=== PATIENT | male | born 1955 | race African-American/Black ===

== ENCOUNTER → 2020-05-12 14:04 | Outpatient (BNVA) | payer OTHER, MEDICAID, SELFPAY | PROVIDERS: Visit Provider Urology ==

== ENCOUNTER → 2022-06-20 11:16 | Outpatient (BNVA) | payer MEDICARE, OTHER, MEDICAID, SELFPAY | PROVIDERS: Visit Provider Nurse Practitioner Family | DX: N40.1 Benign prostatic hyperplasia with lower urinary tract symptoms (principal); N13.8 Other obstructive and reflux uropathy; C64.9 Malignant neoplasm of unspecified kidney, except renal pelvis | CPT/HCPCS: 51798; 99212 ==

== ENCOUNTER 2022-06-21 12:20 | Outpatient (REF) | payer MEDICARE, OTHER, MEDICAID, SELFPAY ==
[2022-06-21 13:49] LABS: PSA,Total (Free>4and<10) 4.74 ng/mL (0.00-4.00)
[2022-06-22 10:09] LABS: Free Prostate Spec Ag 1.4 ng/mL; Percent Free Prostate Spec Ag 28 % (calc) (>25)
== END 2022-06-21 12:21 | disposition home or self-care (01) ==
LOC: HO.LAB 12:20
PROVIDERS: PCP Internal Medicine; Visit Provider Nurse Practitioner Family
DX: Z12.5 Encounter for screening for malignant neoplasm of prostate (principal); N40.1 Benign prostatic hyperplasia with lower urinary tract symptoms; N13.8 Other obstructive and reflux uropathy
CPT/HCPCS: 36415; 84153; 84154

== ENCOUNTER 2022-07-11 15:43 | Outpatient (REF) | payer MEDICARE, OTHER, MEDICAID, SELFPAY ==
--- NOTE | ~2022-07-11 | US_ITS ---
EXAMINATION: US RETROPERITONEAL COMPLETE (RENAL) CLINICAL INFORMATION: Malignant neoplasm of unspecified kidney, except renal pelvis. COMPARISON: Renal ultrasound 04/23/2020 and 09/10/2019. TECHNIQUE: Real-time imaging of the kidneys and bladder. FINDINGS: RIGHT KIDNEY: 8.5 x 5.6 x 5.4 cm (SAG x AP x TRV). The kidney is normal in size, contour, and echogenicity. Cortical scarring lateral mid pole. No renal calculi or hydronephrosis. Midpole cyst measures 1.3 x 1.1 x 1.4 cm. LEFT KIDNEY: 8.8 x 6.3 x 5.3 cm (SAG x AP x TRV). The kidney is normal in size, contour, and echogenicity. Renal cortical thickness is normal. No focal parenchymal lesions or hydronephrosis. 2 mm cortically based calcification. BLADDER: Well distended. Bilateral ureteral jets are demonstrated. Prevoid bladder volume is 277 mL. Postvoid bladder volume is 7.7 mL. ADDITIONAL FINDINGS: Prostate gland measures 4.2 x 5.3 x 3.8 cm for a volume of 44.4 mL. US/US retroperitoneal comp IMPRESSION: Cortical scarring lateral mid pole right kidney. Right renal cyst. No suspicious features.
== END 2022-07-11 15:44 | disposition home or self-care (01) ==
LOC: HO.US 15:43
PROVIDERS: PCP Internal Medicine; Visit Provider Nurse Practitioner Family
DX: C64.9 Malignant neoplasm of unspecified kidney, except renal pelvis (principal); N40.1 Benign prostatic hyperplasia with lower urinary tract symptoms; N13.8 Other obstructive and reflux uropathy
CPT/HCPCS: 76770

== ENCOUNTER → 2022-08-04 14:22 | Outpatient (BNVA) | payer MEDICARE, OTHER, MEDICAID, SELFPAY | PROVIDERS: Visit Provider Nurse Practitioner Family | DX: C64.9 Malignant neoplasm of unspecified kidney, except renal pelvis (principal); R97.20 Elevated prostate specific antigen [PSA]; R39.9 Unspecified symptoms and signs involving the genitourinary system | CPT/HCPCS: 51798; 99212 ==

== ENCOUNTER 2022-09-13 14:38 | Outpatient (AMB) | payer MEDICARE, OTHER, MEDICAID, SELFPAY ==
--- NOTE | 2022-09-13 14:56 | HO.VETSHOME ---
Intake Intake Visit Reasons: 6w/PVR Allergies spariva Allergy (Unknown, Uncoded 08/04/22 22:19) Unknown [facility] Medical History Anxiety Benign prostatic hyperplasia with lower urinary tract symptoms Bipolar disorder Chronic obstructive pulmonary disease (COPD) Depression Feeling of incomplete bladder emptying History of suicidal tendencies Memory loss Renal cancer Rheumatoid arthritis Urinary urgency Surgical History H/O endoscopy History of appendectomy History of hernia repair Family History Father No problems noted. Mother No problems noted. Coding Diagnoses
--- NOTE | 2022-09-13 14:57 | A.OFFVIS_ITS ---
Intake Intake Visit Reasons: 6w/PVR Intake Note: Patient is present for follow up renal cancer/BPH Urology Medications: d/c tamsulosin, finasteride, terazosin Blood Thinner: none Pt unable to void PVR: 16ml Fabric Awning Repairer Required: No Accompanied by: Self / Same As Patient Allergies spariva Allergy (Unknown, Uncoded 08/04/22 22:19) Unknown HPI HPI Comments History of Present Illness Details Dung is a very pleasant 67 year old male patient of Dr. Velez. He presents to the office today for follow-up. He has a past medical history of COPD, BPH, anxiety, H pylori, anemia, chronic back pain, obstructive sleep apnea, hyperlipidemia, former smoker, GERD, rheumatoid arthritis, osteoarthritis, bipolar disorder, and past history of cocaine abuse. Of note, patient was previously seen approximately 6 weeks ago at which time his Flomax was discontinued and the patient was started on terazosin for ongoing lower urinary tract symptoms. In discussion with the patient today he reports to be doing and feeling well. He reports to be happy with his current voiding parameters on 5 mg of terazosin daily. He otherwise offers no issues or concerns at this time. When asked he denies hematuria, dysuria, foul smelling urine, changes to urinary stream, flank pain, fever, and or chills. Unable to obtain urine for urinalysis as patient unable to void however PVR 16mls. PSA 06/28--5.0 Percent free 28%. Patient reports compliance with 5 mg of finasteride daily will reassess PSA in December. PREVIOUS VISIT WITH ------ Elevated PSA/Abnormal JERROD:? Discussed imaging findings ? Right exophytic cyst cyst stable ? Continues on medications for prostate ? He presents for?further evaluation of elevated PSA. ? Current management is medication with 5AR. ? Laboratory investigations include 04/24 6.6 ? 10/25 5.1 F 21% ? 04/25 4.2 04/26 4.3 Individualized Prostate Cancer Risk Calculator 5-10% high risk, Discussed use of 5AR to help differentiate prostate cancer from benign disease. He would like to try this and understands the small risk associated with a delay in diagnosis, Discussion regarding TRUS biopsy performed. ? Therapeutic plan will be Continue finasteride and obtain PSA in 4 months ? Discussed Biopsy may be warranted. Renal lesion:? They present for? reevaluation of renal mass characterized as, right side, renal cancer. ? The renal mass was diagnosed incidentally, during evaluation for, back pain. ? Imaging included 06/16 - a CT (computed tomography) scan of the abdomen/pelvis, showing a solid mass, 2-3.0 cm in size, on the right ? - Followup imaging has showed appropriate scarring ? 04/22 , an MRI of the abdomen, ablation scar on the right ? 03/27 , a renal ultrasound, table ablation area on right ? 09/25 , a renal ultrasound, right 1.2 cm exophytic cyst consistent with ablation area - 05/27 BAMBI ? Prior treatment(s) included 06/16 cryotherapy [facility]. ? Staging of initial cancer T1a. ? The diagnosis was renal cell carcinoma, Grade II. ? Current symptoms include? hematuria? No ? dysuria? No ? fever? No ? chills? No ? Follow up imaging includes renal Ultrasound. [facility] Medical History Anxiety Benign prostatic hyperplasia with lower urinary tract symptoms Bipolar disorder Chronic obstructive pulmonary disease (COPD) Depression Feeling of incomplete bladder emptying History of suicidal tendencies Memory loss Renal cancer Rheumatoid arthritis Urinary urgency Surgical History H/O endoscopy History of appendectomy History of hernia repair Family History Father No problems noted. Mother No problems noted. Social History Unable to assess alcohol history related to: Unable to respond Patient Tobacco Use Status: Never used Tobacco Review of Systems Const Reports as per [facility] Eyes Reports no additional complaints ENT Reports no additional complaints Card Reports no additional complaints Resp Reports as per HPI GI Reports as per HPI Reports as per HPI Neuro Reports no additional complaints Psych Reports as per HPI Endo Reports no additional complaints Physical Exam Const General: cooperative, comfortable, no acute distress, well developed, alert and awake Nutritional Appearance: thin Orientation/consciousness: patient oriented x3 Limitations: ambulation with cane HEENT Head: Yes normal to inspection, Yes normocephalic and Yes atraumatic Ears: hearing grossly normal bilaterally Eyes General: appearance normal, both eyes and all related structures Neck Neck: Yes normal visual inspection and Yes trachea midline Chest Chest palpation & inspection: normal inspection of the chest Resp Effort & Inspection: normal respiratory effort and able to speak in complete sentences Cardio Rate: regular rate GI Inspection: Yes normal to inspection General: Yes no CVA tenderness Back/Spine/Pelvis Back: no CVA tenderness Skin General skin exam: no rashes or lesions noted Neuro General: patient oriented x3 Extrem General: Yes normal to inspection Psych Appearance: grossly normal and well kempt Mental Status: mental status grossly normal Speech and movement: Normal speech and movement present and Clear speech present Affect: normal affect Attitude: cooperative Thought process: Normal thought process present Thought content: Normal thought content present Insight: Fair insight present (Psych) Judgement: Fair judgement present (Psych) Office Procedures Post Void Residual Post Residual Void Post Void Residual (PVR): 116 [id number] Void Residual by ultrasound Assessment & Plan Assessment & Plan (1) Elevated PSA: Code(s): R97.20 - Elevated prostate specific antigen [PSA] (2) Lower urinary tract symptoms: Code(s): R39.9 - Unspecified symptoms and signs involving the genitourinary system (3) BPH w urinary obs/LUTS: Code(s): N40.1 - Benign prostatic hyperplasia with lower urinary tract symptoms; N13.8 - Other obstructive and reflux uropathy (4) Renal cancer: Code(s): C64.9 - Malignant neoplasm of unspecified kidney, except renal pelvis Plan Unable to obtain urine for urinalysis however PVR 16 mL. Continue terazosin 5 mg as discussed and prescribed. Continue finasteride 5 mg as discussed and prescribed. Will obtain redraw of PSA in December. PSA in 3 months Will continue with surveillance imaging for history of renal cell carcinoma discussed obtaining more recent CT abd and pelvis Discussed and stressed the importance of drinking plenty of water daily. Patient otherwise denies any bothersome urinary issues or concerns at this time. Follow-up in 3 months with lab to be completed prior; or sooner with any issues, concerns, and or questions. Orders: Orders PSA,Total (Free>4and<10) 3 Months R97.20 - Elevated prostate specific antigen [PSA] AMB Post Void Residual by ultrasound 09/13/22 N39.8 - Other specified disorders of urinary system Patient Instructions: The patient had an opportunity to ask questions regarding the treatment plan. All questions were answered. Physical exam, labs, and imaging were discussed and reviewed in detail. As well as risks, benefits, and discussion of treatment c hoices. No major barriers to understanding were identified. The patient expressed understanding and agreement with the above treatment plan. The patient was made aware they should contact our office by phone for worsening of their current condition, the appearance of new symptoms, or with any questions or concerns. Compliance is encouraged with any medications and follow up testing that is ordered. It is a privilege to be allowed the opportunity to participate in? your urological care.? Again, if you have any questions or concerns If you have any questions or concerns please do not hesitate to contact me. The office is [phone]. This note is constructed using voice recognition software. While every effort has been made to ensure accuracy transmission repairer errors may have been included. Yours sincerely, MARKY Pichardo Coding Level of Care Code Est Pt Level 3 (98024) Diagnoses Elevated PSA R97.20 Lower urinary tract symptoms R39.9 BPH w urinary obs/LUTS N40.1; N13.8 Renal cancer C64.9 CPT Codes Post Residual Void - PVR CPT Code: 52962-Tqkq Void Residual by ultrasound ([id number])
== END 2022-09-13 15:25 | disposition home or self-care (01) ==
PROVIDERS: PCP Internal Medicine; Visit Provider Nurse Practitioner Family
DX: R97.20 Elevated prostate specific antigen [PSA] (principal); R39.9 Unspecified symptoms and signs involving the genitourinary system; N40.1 Benign prostatic hyperplasia with lower urinary tract symptoms; N13.8 Other obstructive and reflux uropathy; C64.9 Malignant neoplasm of unspecified kidney, except renal pelvis
CPT/HCPCS: 99213

== ENCOUNTER → 2022-09-13 14:38 | Outpatient (BNVA) | payer MEDICARE, OTHER, MEDICAID, SELFPAY | PROVIDERS: PCP Internal Medicine; Visit Provider Nurse Practitioner Family | DX: R97.20 Elevated prostate specific antigen [PSA] (principal); N40.1 Benign prostatic hyperplasia with lower urinary tract symptoms; R39.9 Unspecified symptoms and signs involving the genitourinary system; N13.8 Other obstructive and reflux uropathy; C64.9 Malignant neoplasm of unspecified kidney, except renal pelvis | CPT/HCPCS: 51798; 99212 ==

== ENCOUNTER 2022-11-04 11:43 | Outpatient (REF) | payer MEDICARE, OTHER, MEDICAID, SELFPAY ==
[2022-11-04 13:00] LABS: PSA,Total (Free>4and<10) 2.23 ng/mL (0.00-4.00)
== END 2022-11-04 11:44 | disposition home or self-care (01) ==
LOC: HO.LAB 11:43
PROVIDERS: PCP Internal Medicine; Visit Provider Nurse Practitioner Family
DX: Z12.5 Encounter for screening for malignant neoplasm of prostate (principal); R97.20 Elevated prostate specific antigen [PSA]
CPT/HCPCS: 36415; 84153

== ENCOUNTER 2022-11-08 14:27 | Outpatient (AMB) | payer MEDICARE, OTHER, MEDICAID, SELFPAY ==
--- NOTE | 2022-11-08 14:46 | A.OFFVIS_ITS ---
Intake Intake Visit Reasons: 2m/PSA Intake Note: Patient is present for follow up renal cancer/BPH/elevated psa (psa 2.23) Urology Medications: finasteride, terazosin Blood Thinner: none PVR: 14ml's Manager Packaging Required: No Accompanied by: Self / Same As Patient Allergies spariva Allergy (Unknown, Uncoded 11/08/22 23:11) Unknown Medication List - Last Reconciled 11/08/22 by Amy Nguyen, ASBESTOS ABATEMENT TECHNICIAN- albuterol sulfate 90 mcg/actuation inhalation budesonide-formoterol 160-4.5 mcg/actuation 2 puffs PO BID docusate sodium 100 mg PO DAILY ferrous sulfate (FeroSul) 325 mg PO DAILY finasteride 5 mg PO DAILY 90 days immun glob G(IgG)-gly-IgA ov50 10 % (Gammagard Liquid) mL IV levalbuterol tartrate 45 mcg/actuation 0 mcg inhalation montelukast 10 mg PO BEDTIME omeprazole 20 mg PO QAM pravastatin 40 mg PO DAILY prednisone 10 mg PO DAILY terazosin 5 mg PO BEDTIME 90 days theophylline ER 1 mg PO BEDTIME HPI HPI Comments History of Present Illness Details Dung is a very pleasant 67 year old male patient of Dr. Velez. He presents to the office today for follow-up. He has a past medical history of COPD, BPH, anxiety, H pylori, anemia, chronic back pain, obstructive sleep apnea, hyperlipidemia, former smoker, GERD, rheumatoid arthritis, osteoarthritis, bipolar disorder, and past history of cocaine abuse. Of note, patient was previously seen approximately 2 months ago at which time patient reported terazosin he was started on had significantly improved his lower urinary tract symptoms however PSA was ordered and not completed. Therefore, recommendations were made for follow-up of a PSA. These results were reviewed with the patient today. Patient's PSAs are as follows: 06/28--4.7 06/28--5.0 % free prostate specific antig en 28% 10/29--2.2 PCPT calculator results were reviewed with the patient 07/29-- 76% negative, 12% chance low-grade prostate cancer, and 12% chance of high-grade prostate cancer was discussed with the patient. Discussion regarding potential causes for elevated PSA was discussed. Discussed prostate biopsy verses surveillance mo nitoring versus continuation of finasteride at which time patient wished to proceed with continuation of finasteride 5 mg daily. In discussion with the patient today he reports to be happy with current voiding parameters on 5 mg of terazosin daily as well as compliance with 5 mg of finasteride daily. He denies any urinary issues or concerns at this time. In office urinalysis results reviewed with the patient today. PVR 14 mLs. Discussed obtaining redraw of PSA, renal ultrasound, and chest x-ray in 6 months for further assessment evaluation. PREVIOUS NOTES WITH ---- Renal lesion:? They present for? reevaluation of renal mass characterized as, right side, renal cancer. ? The renal mass was diagnosed incidentally, during evaluation for, back pain. ? Imaging included 06/16 - a CT (computed tomography) scan of the abdomen/pelvis, showing a solid mass, 2-3.0 cm in size, on the right ? - Followup imaging has showed appropriate scarring ? 04/22 , an MRI of the abdomen, ablation scar on the right ? 03/27 , a renal ultrasound, table ablation area on right ? 09/25 , a renal ultrasound, right 1.2 cm exophytic cyst consistent with ablation area - 05/27 BAMBI ? Prior treatment(s) included 06/16 cryotherapy [facility]. ? Staging of initial cancer T1a. ? The diagnosis was renal cell carcinoma, Grade II. ? Current symptoms include? hematuria? No ? dysuria? No ? fever? No ? chills? No ? Follow up imaging includes renal Ultrasound. [facility] Medical History Memory loss History of suicidal tendencies Anxiety Depression Bipolar disorder Rheumatoid arthritis Chronic obstructive pulmonary disease (COPD) Urinary urgency Benign prostatic hyperplasia with lower urinary tract symptoms Feeling of incomplete bladder emptying Renal cancer Surgical History H/O endoscopy History of hernia repair History of appendectomy Family History Father No problems noted. Mother No problems noted. Social History Unable to assess alcohol history related to: Unable to respond Patient Tobacco Use Status: Never used Tobacco Review of Systems Const Reports as per [facility] Eyes Reports no additional complaints ENT Reports no additional complaints Card Reports no additional complaints Resp Reports as per HPI GI Reports as per HPI Reports as per HPI Neuro Reports no additional complaints Psych Reports as per HPI Endo Reports no additional complaints Physical Exam Const General: cooperative, comfortable, no acute distress, well developed, alert and awake Nutritional Appearance: thin Orientation/consciousness: patient oriented x3 Limitations: ambulation with cane HEENT Head: Yes normal to inspection, Yes normocephalic and Yes atraumatic Ears: hearing grossly normal bilaterally Eyes General: appearance normal, both eyes and all related structures Neck Neck: Yes normal visual inspection and Yes trachea midline Chest Chest palpation & inspection: normal inspection of the chest Resp Effort & Inspection: normal respiratory effort and able to speak in complete sentences Cardio Rate: regular rate GI Inspection: Yes normal to inspection General: Yes no CVA tenderness Back/Spine/Pelvis Back: no CVA tenderness Skin General skin exam: no rashes or lesions noted Neuro General: patient oriented x3 Extrem General: Yes normal to inspection Psych Appearance: grossly normal and well kempt Mental Status: mental status grossly normal Speech and movement: Normal speech and movement present and Clear speech present Affect: normal affect Attitude: cooperative Thought process: Normal thought process present Thought content: Normal thought content present Insight: Fair insight present (Psych) Judgement: Fair judgement present (Psych) Office Procedures Post Void Residual Post Residual Void Post Void Residual (PVR): 14 [id number] Void Residual by ultrasound Results AMB Urinalysis, Automated UA Leukoctes 0 Dodie/uL Last Edit by Bee Resilientmartell on 11/08/22 15:01 UA Nitrite Negative Last Edit by Bee Resilientmartell on 11/08/22 15:01 UA Urobilinogen 0.2 mg/dL Last Edit by BoxCat on 11/08/22 15:01 UA Protein 0 mg/dL Last Edit by Bee Resilientmartell on 11/08/22 15:01 UA pH 6.5 Last Edit by BoxCat on 11/08/22 15:01 UA Blood 0 Lobito/uL Last Edit by Sabra Alvamartell on 11/08/22 15:01 UA Specific [place] 1.010 Last Edit by Sabra Alvamartell on 11/08/22 15:01 UA Ketone Negative Last Edit by Sabra Alvamartell on 11/08/22 15:01 UA Bilirubin 0 mg/dL Last Edit by Flipmargi Nidamartell on 11/08/22 15:01 UA Glucose 0 mg/dL Last Edit by Velasquezleigha Nidamartell on 11/08/22 15:01 Results Reviewed Results Reviewed: Laboratory Last Values Urine pH (Auto) 6.5 11/08/22 14:50 Specific [place] (Auto) 1.010 11/08/22 14:50 Urine Protein (Auto) 0 mg/dL 11/08/22 14:50 Glucose (UA)(Auto) 0 mg/dL 11/08/22 14:50 Urine Ketones (Auto) Negative 11/08/22 14:50 Urine Blood (Auto) 0 Lobito/uL 11/08/22 14:50 Urine Nitrite (Auto) Negative 11/08/22 14:50 Urine Bilirubin (Auto) 0 mg/dL 11/08/22 14:50 Urine Urobilinogen (Auto) 0.2 mg/dL 11/08/22 14:50 Leukocyte Esterase (Auto) 0 Dodie/uL 11/08/22 14:50 Assessment & Plan Assessment & Plan (1) Renal cancer: Code(s): C64.9 - Malignant neoplasm of unspecified kidney, except renal pelvis (2) Elevated PSA: Code(s): R97.20 - Elevated prostate specific antigen [PSA] (3) Lower urinary tract symptoms: Code(s): R39.9 - Unspecified symptoms and signs involving the genitourinary system Plan In office urinalysis results reviewed with the patient today; as noted above. PVR 14 mL. Recent PSA results reviewed with the patient today; as noted above. Continue to arises 5 mg daily as well as finasteride 5 mg daily as discussed and prescribed. Patient reports be happy with current voiding parameters on 5 mg of terazosin and finasteride daily; will continue; refills provided Discussed at length potential causes for elevated PSA. Will obtain PSA in 6 months. Will obtain chest x-ray in 6 months. Will obtain renal ultrasound in 6 months for further assessment evaluation. Follow-up in 6 months with labs and imaging to be completed prior; or sooner with any issues, concerns, and or questions. Orders: Orders AMB Urinalysis Automated Today Z13.9 - Encounter for screening, unspecified XR chest 2V 6 Months C64.9 - Malignant neoplasm of unspecified kidney, except renal pelvis AMB Post Void Residual by ultrasound Today N13.8 - Other obstructive and reflux uropathy, N40.1 - Benign prostatic hyperplasia with lower urinary tract symptoms Prostate Specific Antigen 6 Months R97.20 - Elevated prostate specific antigen [PSA] US renal BI 6 Months N20.0 - Calculus of kidney Medications: Changed From terazosin 5 mg PO BEDTIME 30 days 30 caps 2RF N40.1 - Benign prostatic hyperplasia with lower urinary tract symptoms, R35.0 - Frequency of micturition To terazosin 5 mg PO BEDTIME 90 days 90 caps 2RF N40.1 - Benign prostatic hyperplasia with lower urinary tract symptoms, R35.0 - Frequency of micturition Refilled finasteride 5 mg PO DAILY 90 days 90 tabs 3RF N13.8 - Other obstructive and reflux uropathy, N40.1 - Benign prostatic hyperplasia with lower urinary tract symptoms, R33.9 - Retention of urine, unspecified terazosin 5 mg PO BEDTIME 90 days 90 caps 2RF N40.1 - Benign prostatic hyperplasia with lower urinary tract symptoms, R35.0 - Frequency of micturition finasteride 5 mg PO DAILY 90 days 90 tabs 3RF N13.8 - Other obstructive and reflux uropathy, N40.1 - Benign prostatic hyperplasia with lower urinary tract symptoms, R33.9 - Retention of urine, unspecified Patient Instructions: The patient had an opportunity to ask questions regarding the treatment plan. All questions were answered. Physical exam, labs, and imaging were discussed and reviewed in detail. As well as risks, benefits, and discussion of treatment choices. No major barriers to understanding were identified. The patient expressed understanding and agreement with the above treatment plan. The patient was made aware they should contact our office by phone for worsening of their current condition, the appearance of new symptoms, or with any questions or concerns. Compliance is encouraged with any medications and follow up testing that is ordered. It is a privilege to be allowed the opportunity to participate in? your urological care.? Again, if you have any questions or concerns If you have any questions or concerns please do not hesitate to contact me. The office is [phone]. This note is constructed using voice recognition software. While every effort has been made to ensure accuracy air pollution specialist errors may have been included. Yours sincerely, ROGER Pichardo- Coding Level of Care Code Est Pt Level 3 (95420) Diagnoses Renal cancer C64.9 Elevated PSA R97.20 Lower urinary tract symptoms R39.9 CPT Codes Post Residual Void - PVR CPT Code: 49239-Vcad Void Residual by ultrasound ([id number])
== END 2022-11-08 15:31 | disposition home or self-care (01) ==
PROVIDERS: PCP Internal Medicine; Visit Provider Nurse Practitioner Family
DX: C64.9 Malignant neoplasm of unspecified kidney, except renal pelvis (principal); R97.20 Elevated prostate specific antigen [PSA]; R39.9 Unspecified symptoms and signs involving the genitourinary system
CPT/HCPCS: 99213

== ENCOUNTER → 2022-11-08 14:27 | Outpatient (BNVA) | payer MEDICARE, OTHER, MEDICAID, SELFPAY | PROVIDERS: PCP Internal Medicine; Visit Provider Nurse Practitioner Family | DX: C64.9 Malignant neoplasm of unspecified kidney, except renal pelvis (principal); R97.20 Elevated prostate specific antigen [PSA]; R39.9 Unspecified symptoms and signs involving the genitourinary system; N40.1 Benign prostatic hyperplasia with lower urinary tract symptoms; N13.8 Other obstructive and reflux uropathy; R35.0 Frequency of micturition | CPT/HCPCS: 51798; 81003; 99212 ==

== ENCOUNTER 2022-12-23 08:14 | Outpatient (AMB) | payer MEDICARE, OTHER, MEDICAID, SELFPAY ==
--- NOTE | 2022-12-23 08:46 | MHC.OFFVIS ---
Intake Intake Visit Reasons: Voiding trail Intake Note: Patient is Present for Follow Up Voiding Trial Urology Medication: Finasteride, Terazosin Antibiotic Allergies:None Blood Thinners: None PVR: Compliants: Patient stating that he is having a lot of penile pain. Upon looking at patient his penis is swollen. Allergies spariva Allergy (Unknown, Uncoded 12/23/22 08:47) Unknown Medication List - Last Reconciled 12/23/22 by Micky Lopez MD albuterol sulfate 90 mcg/actuation inhalation budesonide-formoterol 160-4.5 mcg/actuation 2 puffs PO BID docusate sodium 100 mg PO DAILY ferrous sulfate (FeroSul) 325 mg PO DAILY finasteride 5 mg PO DAILY 90 days immun glob G(IgG)-gly-IgA ov50 10 % (Gammagard Liquid) mL IV levalbuterol tartrate 45 mcg/actuation 0 mcg inhalation montelukast 10 mg PO BEDTIME omeprazole 20 mg PO QAM pravastatin 40 mg PO DAILY prednisone 10 mg PO DAILY terazosin 5 mg PO BEDTIME 90 days theophylline ER 1 mg PO BEDTIME HPI HPI Comments History of Present Illness Details Gabriele is a pleasant male. He is a patient of . He seen for the following urologic conditions - renal cancer - lower urinary tract symptoms - elevated PSA PSA fell on finasteride Episode of retention at [facility] Here for voiding trial Difficulty removing catheter Lower urinary tract symptoms Current therapy terazosin with significant improved Finasteride started for elevated PSA PSA 06/28--4.7, 06/28--5.0 % free prostate specific antigen 28%, 10/29--2.2 Renal Cancer - Ablation 06/16 :? They present for? reevaluation of renal mass characterized as, right side, renal cancer. ? The renal mass was diagnosed incidentally, during evaluation for, back pain. ? Imaging included 06/16 - a CT (computed tomography) scan of the abdomen/pelvis, showing a solid mass, 2-3.0 cm in size, on the right ? - Followup imaging has showed appropriate scarring ? 04/22 , an MRI of the abdomen, ablation scar on the right ? 03/27 , a renal ultrasound, table ablation area on right ? 09/25 , a renal ultrasound, right 1.2 cm exophytic cyst consistent with ablation area - 07/29 BAMBI 44 g prostate, renal cyst ? Prior treatment(s) included 06/16 cryotherapy [facility]. ? Staging of initial cancer T1a. ? The diagnosis was renal cell carcinoma, Grade II. ? Follow up imaging includes renal Ultrasound. [facility] Medical History Memory loss History of suicidal tendencies Anxiety Depression Bipolar disorder Rheumatoid arthritis Chronic obstructive pulmonary disease (COPD) Urinary urgency Benign prostatic hyperplasia with lower urinary tract symptoms Feeling of incomplete bladder emptying Renal cancer Surgical History H/O endoscopy History of hernia repair History of appendectomy Family History Father No problems noted. Mother No problems noted. Social History Unable to assess alcohol history related to: Unable to respond Patient Tobacco Use Status: Never used Tobacco Review of Systems Const Denies chills and Denies fever(s) Card Reports no additional complaints and Denies syncope Resp Denies cough GI Denies abdominal pain and Denies heartburn Reports as per HPI and Denies change in libido Neuro Denies syncope Psych Denies change in libido Endo Denies change in libido Physical Exam Const General: cooperative, healthy appearing, comfortable and no acute distress Orientation/consciousness: patient oriented x3 HEENT Face and sinus: Yes normal facial exam Mouth: moist mucous membranes Neck Neck: Yes normal visual inspection, Yes full ROM and Yes trachea midline Chest Chest palpation & inspection: normal inspection of the chest Resp Effort & Inspection: normal respiratory effort, able to speak in complete sentences and no respiratory distress GI Inspection: Yes normal to inspection Back/Spine/Pelvis Cervical Spine: normal cervical lordosis Thoracic/Lumbar Spine: thoracic and lumbar spine normal to inspection Skin General skin exam: no rashes or lesions noted Neuro General: patient oriented x3, gait normal, tone normal and moves all extremities Extrem General: Yes normal to inspection and Yes capillary refill normal Office Procedures Bladder/Catheter Procedure Details: 120 mls sterile water instilled into bladder, unable to remove cath, valve cut by Dr Freed, urine drained out, no PVR at this time. 2 week [place]. [id number] of Bladder Procedure code (CPT) selection complete Assessment & Plan Assessment & Plan (1) BPH w urinary obs/LUTS: Code(s): N40.1 - Benign prostatic hyperplasia with lower urinary tract symptoms; N13.8 - Other obstructive and reflux uropathy (2) Renal cancer: Code(s): C64.9 - Malignant neoplasm of unspecified kidney, except renal pelvis Qualifiers: Laterality: right Qualified Code(s): C64.1 - Malignant neoplasm of right kidney, except renal pelvis Plan Two week follow-up nursing PVR Orders: Orders AMB Post Void Residual by ultrasound 12/23/22 N40.1 - Benign prostatic hyperplasia with lower urinary tract symptoms, N13.8 - Other obstructive and reflux uropathy AMB Bladder/Catheter Procedure 12/23/22 N40.1 - Benign prostatic hyperplasia with lower urinary tract symptoms, N13.8 - Other obstructive and reflux uropathy Patient Instructions: Imaging studies, laboratory and physical exam results were discussed and reviewed in detail. No major barriers to patient understanding were identified. An opportunity to ask questions regarding the treatment plan was provided. All questions were answered. The patient expressed understanding and agreement with the above treatment plan. The patient is aware they should contact our office by phone for worsening of their current condition or the appearance of new urologic symptoms. Compliance is encouraged with any medications and followup testing that is ordered. It is a privilege to participate in the urologic care of your patient. If you have any questions or concerns regarding treatment for the above conditions, or other urologic issues, please do not hesitate to contact me. The office telephone contact is [phone]. This note is constructed using voice recognition software. While every effort has been made to ensure accuracy final inspector shuttle errors may have been included. Yours sincerely, Dr Micky Lopez MD, [facility] - Urology Providers of Expert, Compassionate Care for the Genitourinary System Coding Level of Care Code Est Pt Level 4 (67631) Diagnoses BPH w urinary obs/LUTS N40.1; N13.8 Malignant neoplasm of right kidney C64.1 Laterality: right CPT Codes Bladder/Catheter Procedure - CPT: 31213-Ickcwnwpsr of Bladder ([id number])
== END 2022-12-23 09:19 | disposition home or self-care (01) ==
PROVIDERS: PCP Internal Medicine; Visit Provider Urology
DX: N40.1 Benign prostatic hyperplasia with lower urinary tract symptoms (principal); N13.8 Other obstructive and reflux uropathy; C64.1 Malignant neoplasm of right kidney, except renal pelvis
CPT/HCPCS: 99213

== ENCOUNTER → 2022-12-23 08:14 | Outpatient (BNVA) | payer MEDICARE, OTHER, MEDICAID, SELFPAY | PROVIDERS: PCP Internal Medicine; Visit Provider Urology | DX: N40.1 Benign prostatic hyperplasia with lower urinary tract symptoms (principal); N13.8 Other obstructive and reflux uropathy; C64.1 Malignant neoplasm of right kidney, except renal pelvis | CPT/HCPCS: 51700; 99212 ==

== ENCOUNTER → 2023-01-06 12:49 | Outpatient (BNVA) | payer MEDICARE, OTHER, MEDICAID, SELFPAY | PROVIDERS: PCP Internal Medicine; Visit Provider Urology | DX: N40.1 Benign prostatic hyperplasia with lower urinary tract symptoms (principal); N13.8 Other obstructive and reflux uropathy | CPT/HCPCS: 51798 ==

== ENCOUNTER 2023-05-11 14:03 | Outpatient (REF) | payer MEDICARE, OTHER, SELFPAY ==
--- NOTE | ~2023-05-11 | US_ITS ---
EXAMINATION: US RETROPERITONEAL LIMITED (RENAL ONLY) CLINICAL INFORMATION: Calculus of kidney. COMPARISON: Ultrasound kidneys and bladder 07/11/2022. Ultrasound kidneys 04/23/2020. TECHNIQUE: Real-time imaging of the kidneys. Limited visualization due to bowel gas. FINDINGS: RIGHT KIDNEY: 8.9 x 4.1 x 5.1 cm (SAG x AP x TRV). No hydronephrosis. No renal calculi. Limited visualization. A 1.2 cm midpole cyst with benign features. There is no indication for follow-up imaging. Redemonstration of cortical scarring lateral mid pole. . LEFT KIDNEY: 10.0 x 5.5 x 4.9 cm (SAG x AP x TRV). No hydronephrosis. No renal calculi. Limited visualization. Lobulated renal cortex difficult to evaluate due to limited visualization. US/US renal BI IMPRESSION: No hydronephrosis. No renal calculi. Limited visualization.
[2023-05-11 16:47] LABS: Prostate Specific Antigen 2.25 ng/mL (<0.05-4.0)
== END 2023-05-11 14:04 | disposition home or self-care (01) ==
LOC: HO.US 14:03
PROVIDERS: PCP Internal Medicine; Visit Provider Nurse Practitioner Family
DX: N20.0 Calculus of kidney (principal); R97.20 Elevated prostate specific antigen [PSA]; Z12.5 Encounter for screening for malignant neoplasm of prostate
CPT/HCPCS: 36415; 76775; 84153

== ENCOUNTER 2023-06-15 12:07 | Outpatient (REF) | payer MEDICARE, OTHER, SELFPAY | END 2023-06-15 12:08 | disposition home or self-care (01) | LOC: HO.XRAY 12:07 | PROVIDERS: PCP Internal Medicine; Visit Provider Nurse Practitioner Family | DX: Z13.89 Encounter for screening for other disorder (principal) ==

== ENCOUNTER 2023-06-15 12:15 | Outpatient (REF) | payer MEDICARE, OTHER, SELFPAY ==
--- NOTE | ~2023-06-15 | XR_ITS ---
EXAMINATION: XR chest 2V CLINICAL INFORMATION: Reason for Exam C64.9 - Malignant neoplasm of unspecified kidney, except renal pelvis COMPARISON: None TECHNIQUE: 2 views of the chest FINDINGS: Clear lungs. No pneumothorax or pleural effusion. Normal cardiomediastinal silhouette. XR/XR chest 2V Impression: * Clear lungs.
== END 2023-06-15 12:16 | disposition home or self-care (01) ==
LOC: HO.US 12:15
PROVIDERS: PCP Internal Medicine; Visit Provider Nurse Practitioner Family
DX: C64.9 Malignant neoplasm of unspecified kidney, except renal pelvis (principal)
CPT/HCPCS: 71046

== ENCOUNTER 2023-06-20 13:14 | Outpatient (AMB) | payer MEDICARE, OTHER, SELFPAY ==
--- NOTE | 2023-06-20 13:24 | A.OFFVIS_ITS ---
Intake Visit Reasons: follow up/US/KUB/labs Intake Note: Patient is present for follow up ultrasound, x-ray, and psa results PSA: 2.25 Urology Medications: finasteride, terazosin Blood Thinner: none PVR: 10ml's Rough And Trueing Machine Operator Required: No Accompanied by: Self / Same As Patient Allergies spariva Allergy (Unknown, Uncoded 06/20/23 19:53) Unknown Medication List - Last Reconciled 06/20/23 by HITESH PichardoP- albuterol sulfate 90 mcg/actuation inhalation azithromycin 250 mg PO DAILY budesonide-formoterol 160-4.5 mcg/actuation 2 puffs PO BID docusate sodium 100 mg PO DAILY ferrous sulfate (FeroSul) 325 mg PO DAILY finasteride 5 mg PO DAILY 90 days immun glob G(IgG)-gly-IgA ov50 10 % (Gammagard Liquid) mL IV levalbuterol tartrate 45 mcg/actuation 0 mcg inhalation montelukast 10 mg PO BEDTIME omeprazole 20 mg PO QAM pravastatin 40 mg PO DAILY prednisone 10 mg PO DAILY terazosin 5 mg PO BEDTIME 90 days theophylline ER 1 mg PO BEDTIME HPI Comments Details: Gabriele is a pleasant 68-year-old male patient of Dr. Velez. He has a past medical history of memory loss, anxiety, depression, bipolar disorder, rheumatoid arthritis, COPD, BPH with lower urinary tract symptoms, and renal cancer. He presents to the office today for follow-up of his - renal cancer - lower urinary tract symptoms - elevated PSA In discussion with the patient today he reports to be doing and feeling well. Recent PSA results and recent imaging results reviewed with the patient today. PSAs are as follows 10/29 2.2, 05/30 2.3 Right kidney with no hydronephrosis or renal calculi. A 1.2 cm mid pole cyst with benign features. There is no indication for follow-up imaging per radiology report. Redemonstration of cortical scarring lateral mid pole. Left kidney with no hydronephrosis or renal calculi. Lobulated renal cortex difficult to evaluate due to limited visualization. Chest x-ray with no acute findings lungs are clear. He currently denies any bothersome urinary issues or concerns. He reports compliance with 5 mg of finasteride and terazosin daily. He reports be happy with current voiding parameters. He denies urinary urgency, urinary frequency, incontinence, nocturia, hematuria, dysuria, foul smelling urine, changes to urinary stream, flank pain, fever, and or chills. In office urinalysis results reviewed with the patient today. PVR 10 mL. Renal Cancer - Ablation 06/16 :? They present for? reevaluation of renal mass characterized as, right side, renal cancer. ? The renal mass was diagnosed incidentally, during evaluation for, back pain. ? Imaging included 06/16 - a CT (computed tomography) scan of the abdomen/pelvis, showing a solid mass, 2-3.0 cm in size, on the right ? - Followup imaging has showed appropriate scarring ? 04/22 , an MRI of the abdomen, ablation scar on the right ? 03/27 , a renal ultrasound, table ablation area on right ? 09/25 , a renal ultrasound, right 1.2 cm exophytic cyst consistent with ablation area - 07/29 BAMBI 44 g prostate, renal cyst ? Prior treatment(s) included 06/16 cryotherapy [facility]. ? Staging of initial cancer T1a. ? The diagnosis was renal cell carcinoma, Grade II. ? Follow up imaging includes renal Ultrasound. [facility] Medical History Memory loss History of suicidal tendencies Anxiety Depression Bipolar disorder Rheumatoid arthritis Chronic obstructive pulmonary disease (COPD) Urinary urgency Benign prostatic hyperplasia with lower urinary tract symptoms Feeling of incomplete bladder emptying Renal cancer Surgical History H/O endoscopy History of hernia repair History of appendectomy Family History Father No problems noted. Mother No problems noted. Social History Unable to assess alcohol history related to: Unable to respond Patient Tobacco Use Status: Never used Tobacco Review of Systems Const Reports as per HPI Eyes Reports no additional complaints ENT Reports no additional complaints Card Reports no additional complaints Resp Reports as per HPI GI Reports as per HPI Reports as per HPI Neuro Reports no additional complaints Psych Reports as per HPI Endo Reports no additional complaints Physical Exam Const General: cooperative, comfortable, no acute distress, well developed, alert and awake Nutritional Appearance: thin Orientation/consciousness: patient oriented x3 Limitations: other limitations (motorized scooter ) HEENT Head: Yes normal to inspection, Yes normocephalic and Yes atraumatic Ears: hearing grossly normal bilaterally Eyes General: appearance normal, both eyes and all related structures Neck Neck: Yes normal visual inspection and Yes trachea midline Chest Chest palpation & inspection: normal inspection of the chest Resp Effort & Inspection: normal respiratory effort and able to speak in complete sentences Cardio Rate: regular rate GI Inspection: Yes normal to inspection General: Yes no CVA tenderness Back/Spine/Pelvis Back: no CVA tenderness Skin General skin exam: no rashes or lesions noted Neuro General: patient oriented x3 Extrem General: Yes normal to inspection Psych Appearance: grossly normal and well kempt Mental Status: mental status grossly normal Speech and movement: Normal speech and movement present and Clear speech present Affect: normal affect Attitude: cooperative Thought process: Normal thought process present Thought content: Normal thought content present Insight: Fair insight present (Psych) Judgement: Fair judgement present (Psych) Office Procedures Post Void Residual Post Residual Void Post Void Residual (PVR): 10 [id number] Void Residual by ultrasound Results AMB Urinalysis, Automated UA Leukoctes 0 Dodie/uL Last Edit by uTrail me on 06/20/23 13:45 UA Nitrite Negative Last Edit by uTrail me on 06/20/23 13:45 UA Urobilinogen 0.2 mg/dL Last Edit by uTrail me on 06/20/23 13:45 UA Protein 0 mg/dL Last Edit by uTrail me on 06/20/23 13:45 UA pH 6.0 Last Edit by uTrail me on 06/20/23 13:45 UA Blood 0 Lobito/uL Last Edit by uTrail me on 06/20/23 13:45 UA Specific [place] 1.015 Last Edit by uTrail me on 06/20/23 13:45 UA Ketone Negative Last Edit by uTrail me on 06/20/23 13:45 UA Bilirubin 0 mg/dL Last Edit by [place] [employer] on 06/20/23 13:45 UA Glucose 0 mg/dL Last Edit by Sabra Domínguez on 06/20/23 13:45 Results Reviewed Results Reviewed: Laboratory Last Values Urine pH (Auto) 6.0 06/20/23 13:34 Specific [place] (Auto) 1.015 06/20/23 13:34 Urine Protein (Auto) 0 mg/dL 06/20/23 13:34 Glucose (UA)(Auto) 0 mg/dL 06/20/23 13:34 Urine Ketones (Auto) Negative 06/20/23 13:34 Urine Blood (Auto) 0 Lobito/uL 06/20/23 13:34 Urine Nitrite (Auto) Negative 06/20/23 13:34 Urine Bilirubin (Auto) 0 mg/dL 06/20/23 13:34 Urine Urobilinogen (Auto) 0.2 mg/dL 06/20/23 13:34 Leukocyte Esterase (Auto) 0 Dodie/uL 06/20/23 13:34 Date of Service: 05/11/23 EXAMINATION: US RETROPERITONEAL LIMITED (RENAL ONLY) FINDINGS: RIGHT KIDNEY: 8.9 x 4.1 x 5.1 cm (SAG x AP x TRV). No hydronephrosis. No renal calculi. Limited visualization. A 1.2 cm midpole cyst with benign features. There is no indication for follow-up imaging. Redemonstration of cortical scarring lateral mid pole. . LEFT KIDNEY: 10.0 x 5.5 x 4.9 cm (SAG x AP x TRV). No hydronephrosis. No renal calculi. Limited visualization. Lobulated renal cortex difficult to evaluate due to limited visualization. IMPRESSION: No hydronephrosis. No renal calculi. Limited visualization. Date of Service: 06/15/23 EXAMINATION: XR chest 2V FINDINGS: Clear lungs. No pneumothorax or pleural effusion. Normal cardiomediastinal silhouette. Impression: Clear lungs. Assessment & Plan Assessment & Plan (1) Elevated PSA: Code(s): R97.20 - Elevated prostate specific antigen [PSA] Category: Medical (2) Lower urinary tract symptoms: Code(s): R39.9 - Unspecified symptoms and signs involving the genitourinary system Category: Medical (3) BPH w urinary obs/LUTS: Code(s): N40.1 - Benign prostatic hyperplasia with lower urinary tract symptoms; N13.8 - Other obstructive and reflux uropathy Category: Medical (4) Renal cancer: Code(s): C64.9 - Malignant neoplasm of unspecified kidney, except renal pelvis Category: Medical Qualifiers: Laterality: right Qualified Code(s): C64.1 - Malignant neoplasm of right kidney, except renal pelvis Plan In office urinalysis results reviewed with the patient today; as noted above. PVR 10 mL. Patient currently denies any bothersome urinary issues or concerns continue finasteride and terazosin 5 mg daily as discussed and prescribed. Recent PSA results reviewed with the patient today. Recent chest x-ray and renal ultrasound results reviewed with the patient today; as noted above; will continue with surveillance monitoring. Patient reports be happy with current voiding parameters. Will obtain PSA in 6 months. Follow-up in 6 months with lab to be completed prior; or sooner with any issues, concerns, and or questions. Orders: Orders Prostate Specific Antigen 6 Months R97.20 - Elevated prostate specific antigen [PSA] AMB Urinalysis Automated Today Z13.9 - Encounter for screening, unspecified AMB Post Void Residual by ultrasound Today R39.9 - Unspecified symptoms and signs involving the genitourinary system Patient Instructions: The patient had an opportunity to ask questions regarding the treatment plan. All questions were answered. Physical exam, labs, and imaging were discussed and reviewed in detail. As well as risks, benefits, and discussion of treatment choices. No major barriers to understanding were identified. The patient expressed understanding and agreement with the above treatment plan. The patient was made aware they should contact our office by phone for worsening of their current condition, the appearance of new symptoms, or with any questions or concerns. Compliance is encouraged with any medications and follow up testing that is ordered. It is a privilege to be allowed the opportunity to participate in? your urological care.? Again, if you have any questions or concerns If you have any questions or concerns please do not hesitate to contact me. The office is [phone]. This note is constructed using voice recognition software. While every effort has been made to ensure accuracy plaster caster errors may have been included. Yours sincerely, ROGER Pichardo-JOSE Coding Level of Care Code Est Pt Level 3 (78373) Diagnoses Elevated PSA R97.20 Lower urinary tract symptoms R39.9 BPH w urinary obs/LUTS N40.1; N13.8 Malignant neoplasm of right kidney C64.1 Laterality: right CPT Codes Post Residual Void - PVR CPT Code: 47417-[place] Void Residual by ultrasound ([id number])
== END 2023-06-20 14:03 | disposition home or self-care (01) ==
PROVIDERS: PCP Internal Medicine; Visit Provider Nurse Practitioner Family
DX: R97.20 Elevated prostate specific antigen [PSA] (principal); R39.9 Unspecified symptoms and signs involving the genitourinary system; N40.1 Benign prostatic hyperplasia with lower urinary tract symptoms; N13.8 Other obstructive and reflux uropathy; C64.1 Malignant neoplasm of right kidney, except renal pelvis; Z13.9 Encounter for screening, unspecified
CPT/HCPCS: 99213

== ENCOUNTER → 2023-06-20 13:14 | Outpatient (BNVA) | payer MEDICARE, OTHER, SELFPAY | PROVIDERS: PCP Internal Medicine; Visit Provider Nurse Practitioner Family | DX: R97.20 Elevated prostate specific antigen [PSA] (principal); R39.9 Unspecified symptoms and signs involving the genitourinary system; N40.1 Benign prostatic hyperplasia with lower urinary tract symptoms; N13.8 Other obstructive and reflux uropathy; C64.1 Malignant neoplasm of right kidney, except renal pelvis | CPT/HCPCS: 51798; 81003; 99212 ==

== ENCOUNTER 2024-01-26 09:12 | Outpatient (REF) | payer MEDICARE, SELFPAY ==
--- OUTSIDE RECORDS SUMMARY | 2024-01-26 09:16 | XMS_ITS | Continuity of Care Document ---
Author Organization [facility] ter Address [address] [place] [id number]- Care Team Providers Care Crosstie Inspector Name Role Phone Madyson Kerns MD Primary Care Physician Encounter [facility] Date(s): 08/07/23 - 01/20/[address] [address]- Attending Physician: Efraín Ward MD Admitting Physician: Efraín Ward MD Referring Physician: Efraín Ward MD Encounter Type: Pre-Outpt Allergies, Adverse Reactions, Alerts Substance Criticality Severity Reaction Reaction Severity Status Spiriva bumps of his arms Ac tive Immunizations Given and Recorded Vaccine Date Status Refusal Reason SARS-CoV-2 (COVID-19) mRNA BNT-162b2 vac 04/28/20 Recorded SARS-CoV-2 (COVID-19) mRNA BNT-162b2 vac 03/29/20 Recorded pneumococcal 23-valent vaccine 11/28/19 Recorded pneumococcal 23-valent vaccine 04/17/17 Given pneumococcal 23-valent vaccine 12/06/13 Recorded influenza virus vaccine, inactivated 11/28/19 Harrison rded influenza virus vaccine, inactivated 02/21/19 Harrison rded influenza virus vaccine, inactivated 10/24/18 Harrison rded influenza virus vaccine, inactivated 11/05/17 Harrison rded influenza virus vaccine, inactivated 10/16/17 Harrison rded influenza virus vaccine, inactivated 04/17/17 Give n influenza virus vaccine, inactivated 09/15/15 Harrison rded influenza virus vaccine, inactivated 10/27/14 Harrison rded influenza virus vaccine, inactivated 11/21/13 Harrison rded influenza virus vaccine, inactivated 10/21/12 Harrison rded influenza virus vaccine, inactivated 11/11/10 Harrison rded influenza virus vaccine, inactivated 11/09/09 Harrison rded influenza virus vaccine, inactivated 01/16/09 Harrison rded pneumococcal 13-valent vaccine 11/13/17 Recorded tetanus/diphtheria/pertussis, acel(Tdap) 02/16/13 Recorded tetanus-diphtheria toxoids (Td) 02/07/05 Recorded Medications albuterol 90 mcg/inh inhalation powder 2 puffs, Inhalation, Every 4 hours, PRN as needed, # 3 each, 6 Refills, Maintenance, 01/09/24 12:23:00 PM EST, Powder, [facility] #[id number], Partial fill upon patient request if the prescription is for a schedule II opioid drug., 2 puffs Inhalation Every 4 hours,x30 days,PRN:as needed, 165, cm, 01/09/24 10:27:00 EST, Height, 69.1, kg, 01/09/24 3:03:00 EST, Dry Weight Start Date: 01/09/24 Stop Date: 08/06/24 Status: Ordered Quantity: 3.0 Unit: each Repeat number: 7 albuterol-ipratropium 3 mg-0.5 mg/3 ml inhalation solution 3 mL, Neb, 4 times a day, # 360 each, 0 Refills, Maintenance, 01/08/24 9:41:00 PM EST, Solution, Partial fill upon patient request if the prescription is for a schedule II opioid drug. Start Date: 01/08/24 Status: Ordered Quantity: 360.0 Unit: each Repeat number: 1 azithromycin 250 mg oral tablet 1 tablet = 250 mg, By Mouth, Daily, j44.9, # 30 tablet, 11 Refills, Maintenance, 06/14/23 10:48:00 AMEDT, [facility] #[id number], Partial fill upon patient request if the prescription is for a schedule II opioid drug., 177.8, cm, 01/04/23 12:53:00 EST, Height, 80.2, kg, 06/08/23 10:34:00 EDT, Dry Weight Start Date: 06/14/23 Status: Ordered Quantity: 30.0 Unit: tablet Repeat number: 12 DilTIAZem (Eqv-Cardizem CD) 300 mg/24 hours oral capsule, extended release 1 capsule = 300 mg, By Mouth, Daily, 0 Refills, Maintenance, 01/08/24 9:40:00 PM EST, Partial fill upon patient request if the prescription is for a schedule II opioid drug. Start Date: 01/08/24 Status: Ordered Repeat number: 1 Eliquis 5 mg oral tablet 1 tablet = 5 mg, By Mouth, 2 times a day, # 60 tablet, 5 Refills, Maintenance, 01/08/24 9:41:00 PM EST, Tablet, Partial fill upon patient request if the prescription is for a schedule II opioid drug. Start Date: 01/08/24 Status: Ordered Quantity: 60.0 Unit: tablet Repeat number: 1 FeroSul 325 mg oral tablet 1 tablet = 325 mg, By Mouth, Daily, # 100 tablet, 0 Refills, Maintenance, 01/08/24 9:41:00 PM EST, Tablet, Partial fill upon patient request if the prescription is for a schedule II opioid drug. Start Date: 01/08/24 Status: Ordered Quantity: 100.0 Unit: tablet Repeat number: 1 finasteride 5 mg oral tablet 1 tablet = 5 mg, By Mouth, Daily, Maintenance, 08/04/21 12:24:00 PM EDT, Tablet, ; Start Date: 08/04/21 Status: Ordered Repeat number: 1 Gammagard Liquid 10% injectable solution See Instructions, INFUSE 40GM (400ML) INTRAVENOUSLY EVERY 4 WEEKS, # 400 mL, 11 Refills, Maintenance, 01/16/24 12:59:00 PM EST, [facility], 165, cm, 01/09/24 10:27:00 EST, Height, 69.1, kg, 01/09/24 3:03:00 EST, Dry Weight Start Date: 01/16/24 Status: Ordered Quantity: 400.0 Unit: mL Repeat number: 1 oxyCODONE 15 mg oral tablet 1 tablet = 15 mg, By Mouth, Every 8 hours, [facility] filled 06/28/22 84 for 28 day, 0 Refills, Maintenance,05/24/22 4:46:00 PM EDT, Partial fill upon patient request if the prescription is for a schedule II opioid drug. Start Date: 05/24/22 Status: Ordered Repeat number: 1 pantoprazole 40 mg oral delayed release tablet 1 tablet = 40 mg, By Mouth, Daily, # 30 tablet, 0 Refills, Maintenance, 01/08/24 9:40:00 PM EST, [facility] Tablet Start Date: 01/08/24 Status: Ordered Quantity: 30.0 Unit: tablet Repeat number: 1 pravastatin 40 mg oral tablet 1 tablet = 40 mg, By Mouth, Daily, # 30 tablet, 0 Refills, Maintenance, 01/08/24 9:41:00 PM EST, Tablet, Partial fill upon patient request if the prescription is for a schedule II opioid drug. Start Date: 01/08/24 Status: Ordered Quantity: 30.0 Unit: tablet Repeat number: 1 predniSONE 10 mg oral tablet 1 tablet = 10 mg, By Mouth, Daily, # 30 tablet, 11 Refills, Maintenance, 08/01/23 10:22:00 AM EDT, Tablet, [facility] #[id number], Partial fill upon patient request if the prescription is for a schedule II opioid drug., 177.8, cm, 07/05/23 12:58:00 EDT, Height, 80.3, kg, 07/06/23 10:47:00 EDT, Dry Weight Start Date: 08/01/23 Status: Ordered Quantity: 30.0 Unit: tablet Repeat number: 12 predniSONE 10 mg oral tablet 2 tablet = 20 mg, By Mouth, Daily, # 8 tablet, 0 Refills, Maintenance, 01/09/24 11:14:00 AM EST, Tablet, [facility] #[id number], Partial fill upon patient request if the prescription is for a schedule II opioid drug., 165, cm, 01/09/24 10:27:00 EST, Height, 69.1, kg, 01/09/24 3:03:00 EST, Dry Weight Start Date: 01/09/24 Stop Date: 01/13/24 Status: Ordered Quantity: 8.0 Unit: tablet Repeat number: 1 terazosin 5 mg oral capsule 5 mg, 1, capsule, By Mouth, Daily at bedtime, # 30 capsule, Refills 0, Maintenance, 01/08/24 9:41:00PM EST, Partial fill upon patient request if the prescription is for a schedule II opioid drug. Start Date: 01/08/24 Status: Ordered Quantity: 30.0 Unit: capsule Repeat number: 1 theophylline 300 mg oral tablet, extended release 1 tablet = 300 mg, By Mouth, Daily, # 30 tablet, 11 Refills, Maintenance, 06/14/23 11:58:00 AM EDT, ER Tablet, [facility] #[id number], 177.8, cm, 01/04/23 12:53:00 EST, Height, 80.2, kg, 06/08/23 10:34:00 EDT, Dry Weight Start Date: 06/14/23 Stop Date: 06/08/24 Status: Ordered Quantity: 30.0 Unit: tablet Repeat number: 12 Wixela Inhub 250 mcg-50 mcg inhalation powder 1 inhalation, Inhalation, 2 times a day, rinse mouth and throat after use, # 1 each, 11 Refills, Maintenance, 01/09/24 11:14:00 AM EST, Powder, [facility] #[id number], Partial fill upon patient request if the prescription is for a schedule II opioid drug., 1 inhalation Inhalation 2 times a day,x30 days,Instr:rinse mouth and throat after use, 165, cm, 01/09/24 10:27:00 EST, Height, 69.1, kg, 01/09/24 3:03:00 EST, Dry Weight Start Date: 01/09/24 Stop Date: 01/03/25 Status: Ordered Quantity: 1.0 Unit: each Repeat number: 12 Problem List Condition Confirmation Course Effective Dates Status Health Status Informant COPD exacerbation Confirmed Active Anxiety Confirmed Active Asthmatic bronchitis Confirmed Active Bipolar disorder Confirmed Active Bronchiectasis Confirmed Active Hypogammaglobulinemia Confirmed Active Obstructive sleep apnea Confirmed Active Osteoarthritis Confirmed Active Social History Social History Type Response Smoking Status Former smoker; Other : quit 20 years ago; entered on: 08/16/17 Sex Sex Representation Male (finding) Patient Care team information Care Team Personnel Name: Shaheen Solares RN Position: [facility] RN Member Role: Primary Care Nurse Name: Emely Lopez RN Position: [facility] RN Member Role: Primary Care Nurse Name: Carolina Willis RN Position: [facility] [place] Nurse Member Role: Primary Care Nurse Name: Jovanna Israel RN Position: [facility] RN Member Role: Primary Care Nurse Name: Kaitlyn Larsen RN Position: [facility] RN Member Role: Primary Care Nurse Name: Shaheen Dill RN Position: [facility] RN Member Role: Primary Care Nurse Name: Keely Salgado Position: [facility] Outreach Member Role: Lifetime Consulting Physician Name: Juana Carbone RN Position: [facility] RN Member Role: Primary Care Nurse Name: Tatianna Guy RN Position: [facility] Onco RN Member Role: Primary Care Nurse Name: Zayra Irvin RN Position: [facility] RN Member Role: Primary Care Nurse Name: Jeanna Simpson RN Position: [facility] ED RN W/OE and Tasks Member Role: Primary Care Nurse Name: Karime Dhillon NP Position: [facility] Associate Professional Member Role: Lifetime Consulting Provider Address: [address] [place], [place] [id number] [address] Telecom: Name: Alfa Starr MD Position: [facility] Renal MD Member Role: Lifetime Consulting Physician Address: [address] [place], [place] [address]E [facility] [address] Telecom: Name: Geoff Boswell RN Position: [facility] RN Member Role: Primary Care Nurse Name: Monica Gerardo RN Position: [facility] SN RN Member Role: Primary Care Nurse Name: Madyson Kerns MD Position: Reference Physician Member Role: PCP Address: [address] [place] [id number] Telecom: Name: Sylvia Whitman RN Position: [facility] OB RN Member Role: Primary Care Nurse Name: Radha Mclaughlin RN Position: [facility] AMB Nurse Member Role: Primary Care Nurse Name: Araceli Sanders RN Position: [facility] [place] Office Staff Member Role: Primary Care Nurse Name: Emely Chavez LPN Position: [facility] RN Member Role: Primary Care Nurse Name: Susanna Whitten RN Position: [facility] RN Member Role: Primary Care Nurse Name: Ava Reveles RN Position: [facility] RN Member Role: Primary Care Nurse Care Team Related Persons Name: RORY WIN Name: SUZI MANZANO Insurance Providers Guarantor name: [facility] Plan Information #: 3 Payer: ARACELI ENOC REBEKA RAM Member Number: [id number] Policy Number: NA Group Number: [employer] Plan Information #: 1 Payer: [employer] [place] [employer] Member Number: [id number] Policy Number: NA Group Number: [id number] [employer] Information #: 2 Payer: MEDICARE PART B OUTPT Member Number: [id number] Policy Number: NA Group Number: NA
[2024-01-26 11:11] LABS: Prostate Specific Antigen 1.47 ng/mL (<0.05-4.0)
== END 2024-01-26 09:13 | disposition home or self-care (01) ==
LOC: HO.LAB 09:12
PROVIDERS: PCP Internal Medicine; Visit Provider Nurse Practitioner Family
DX: R97.20 Elevated prostate specific antigen [PSA] (principal); Z12.5 Encounter for screening for malignant neoplasm of prostate
CPT/HCPCS: 36415; 84153

== ENCOUNTER 2024-01-29 13:35 | Outpatient (AMB) | payer MEDICARE, SELFPAY ==
--- OUTSIDE RECORDS SUMMARY | 2024-01-29 13:38 | XMS_ITS | Continuity of Care Document ---
Author Organization [facility] ter Address [address] [place] [id number]- Care Team Providers Care Human Resources Generalist Name Role Phone Madyson Kerns MD Primary Care Physician Encounter [facility] R [id number] Date(s): 01/08/24 - 01/09/[address] [address]- Encounter Diagnosis COPD exacerbation(Final) - 01/08/24 Discharge Disposition: A-D/C Home Attending Physician: Salo BRASWELL, Misbah Admitting Physician: Heidi BRASWELL, Gustavo Referring Physician: Not on Staff, Referring MD Encounter Type: Disch Obv Allergies, Adverse Reactions, Alerts Substance Criticality Severity [...] Refills, Maintenance, 01/09/24 12:23:00 PM EST, Powder, [facility] #[id number], Partial fill upon patient request if the [...] tablet, 11 Refills, Maintenance, 06/14/23 10:48:00 AMEDT, [facility] #[id number], Partial fill upon patient request if the prescription is for a schedule II opioid drug., 177.8, cm, 01/04/23 12:53:00 EST, Height, 80.2, kg, 06/08/23 10:34:00 EDT, Dry Weight Start Date: 06/14/23 Status: Ordered Quantity: 30.0 Unit: tablet Repeat number: 12 Cardizem CD 300 mg/24 hours oral capsule, extended release 300 mg, CD Capsule, By Mouth, Hold for: sbp<120, HR<60, 01/09/24 9:00:00 AM EST Start Date: 01/09/24 Stop Date: 01/09/24 Status: Completed Repeat number: 1 Dilaudid Inj 0.5 mg, Injection, IV Push Slowly, Every 4 hours for 3 doses/times, Hold for: sedation, lethargy, RR<12, PRN for Pain , Severe, Routine, 01/08/24 9:21:00 PM EST Start Date: 01/08/24 Stop Date: 01/10/24 Status: Discontinued Repeat number: 1 DilTIAZem (Eqv-Cardizem CD) 300 mg/24 hours oral [...] WEEKS, # 400 mL, 11 Refills, Maintenance, 04/11/23 10:19:00 AM EST Start Date: 04/11/23 Status: Ordered Quantity: 400.0 Unit: mL Repeat number: 12 oxyCODONE 15 mg oral tablet 1 tablet [...] Refills, Maintenance, 08/01/23 10:22:00 AM EDT, Tablet, [facility] #[id number], Partial fill upon patient request if the [...] Refills, Maintenance, 01/09/24 11:14:00 AM EST, Tablet, [facility] #[id number], Partial fill upon patient request if the [...] Maintenance, 06/14/23 11:58:00 AM EDT, ER Tablet, [facility] #[id number], 177.8, cm, 01/04/23 12:53:00 EST, Height, 80.2, kg, 06/08/23 10:34:00 EDT, Dry Weight Start Date: 06/14/23 Stop Date: 06/08/24 Status: Ordered Quantity: 30.0 Unit: tablet Repeat number: 12 Wixela Inhub 250 mcg-50 mcg inhalation powder 1 inhalation, Inhalation, 2 times a day, rinse mouth and throat after use, # 1 each, 11 Refills, Maintenance, 01/09/24 11:14:00 AM EST, Powder, [facility] #[id number], Partial fill upon patient request if the [...] sleep apnea Confirmed Active Osteoarthritis Confirmed Active Results Radiology Reports * Exam Date Time Procedure Performing Provider Status 01/08/24 5:54 PM Chest Portable Kelton Farias (Verified) Notes: (Chest Portable) Reason For Exam: Shortness of Breath RESULT: Chest Portable Chest Portable Hx of Present Illness: t Pt coming from home, hx of COPD and intubations, here for SOB and hypoxia x 1 hr. See PALLAVI level on; Reason: Shortness of Breath; Clinical Question(s): CHF COMPARISON: 07/14/2022 FINDINGS: External objects overlie the central and upper chest. LINES AND TUBES: None. LUNGS AND PLEURA: Clear lungs. Normal pulmonary vascularity. No pleural effusion. No pneumothorax. HEART, MEDIASTINUM AND DONALD: Heart is normal in size. Normal mediastinal and hilar contour. BONES AND SOFT TISSUES: No acute abnormality. IMPRESSION: No acute abnormality. WSN: [id number] Ordering Physician: Mariana Diaz Dictated By: Wayne Cali MD Dictated Date/Time: 01/08/24 6:44 pm Reviewed By: Wayne Cali MD Signed By: Wayne Cali MD Signed Date/Time: 01/08/24 6:44 pm Transcribed By: MINERVA Transcribed Date/Time: 01/08/24 6:44 pm Vital Signs Most recent to oldest [Reference Range]: 1 2 3 Height 165 cm (01/09/24 10:27 AM) 165 cm (01/09/24 7:29 AM) 165 cm (01/09/24 3:13 AM) Weight 69.1 kg (01/08/24 10:06 PM) 70.2 kg (01/08/24 9:50 PM) Oxygen Saturation [94-100 %] 98 % (01/09/24 10:27 AM) 96 % (01/09/24 7:29 AM) 98 % (01/09/24 3:13 AM) Pulse Rate [55-90 bpm] 95 bpm *H* (01/09/24 10:27 AM) 89 bpm (01/09/24 8:39 AM) 89 bpm (01/09/24 7:29 AM) Body Mass Index [18.5-24.99 kg/m2] 25.38 kg/m2 *H* (01/08/24 10:06 PM) Blood Pressure [90-138/55-84 mm Hg] 137/73mm Hg (01/09/24 10:27 AM) 148/72mm Hg *H* (01/09/24 8:39 AM) 148/72mm Hg *H* (01/09/24 7:29 AM) Respiratory Rate [16-30 br/min] 18 br/min (01/09/24 10:27 AM) 18 br/min (01/09/24 8:33 AM) 19 br/min (01/09/24 7:29 AM) Temperature [96.8-100.4 DegF] 98.1 DegF (01/09/24 10:27 AM) 97.9 DegF (01/09/24 7:29 AM) 97.6 DegF (01/09/24 3:13 AM) Liters per Minute 3 L/min (01/08/24 9:07 PM) 3 L/min (01/08/24 8:10 PM) 3 L/min (01/08/24 6:20 PM) Mode of Delivery (Oxygen) Room air (01/09/24 10:27 AM) Room air (01/09/24 7:29 AM) Room air (01/09/24 3:13 AM) Blood pressure sites Arm, left (01/09/24 3:13 AM) Arm, left (01/08/24 10:06 PM) Arm, left (01/08/24 9:50 PM) Temperature Route Oral (01/09/24 10:27 AM) Oral (01/09/24 7:29 AM) Oral (01/09/24 3:13 AM) Dry Weight 69.1 kg (01/08/24 10:06 PM) Weight Obtained Via Bed scale (01/08/24 9:50 PM) Social History Social History Type Response Smoking Status Former smoker; Other : quit 20 years ago; entered on: 08/16/17 Sex Sex Representation Male (finding) Admission evaluation note * Marina BRASWELL, Maxwell: PERFORM, MODIFY Event Display: Admission Note Authored Date: Patient: ??MANZANOROMEO ? Age:??68 Years?Sex:??Male?:??1955?? Chief Complaint/Reason for Consultation Pt coming from home, hx of COPD and intubations, here for SOB and hypoxia x 1 hr. See PALLAVI level one History of Present Illness 68-year-old male with history of known oxygen dependent COPD, atrial fibrillation on Eliquis, GERD,hypogammaglobulinemia, chronic low back pain, hyperlipidemia, BPH, CKD, status post right inguinal hernia repair at [facility] today 01/08/2024 presenting to the emergency department with com plaints of progressively worsening shortness of breath since this afternoon.?? Denies having any fever or chills, no chest pain, no nausea or vomiting, no recent sick contacts, no abdominal pain, diarrhea, constipation or dysuria.?? Patient reports that this feels like his COPD flare , he was noted to be saturating 70% on room air by EMS, subsequently was placed on 3 L of O2 via nasal cannula, status post multiple DuoNebs, IV magnesium, IV Solu-Medrol with some improvement in his respiratory status. Review of Systems All systems are reviewed??and are negative except as noted above in the HPI. Objective Vital Signs?? Temperature: 97.9 DegF (01/08/24 21:50:00) Temperature Route: Oral (01/08/24 21:50:00) Pulse Rate:??103 bpm??High (01/08/24 21:50:00) Respiratory Rate: 18 br/min (01/08/24 21:59:00) Systolic Blood Pressure: 123 mm Hg (01/08/24 21:50:00) Diastolic Blood Pressure: 69 mm Hg (01/08/24 21:50:00) Blood pressure sites: Arm, left (01/08/24 21:50:00) Mean Arterial Pressure: 87 mm Hg (01/08/24 21:50:00) Pulse Pressure: 54 mm Hg (01/08/24 21:50:00) Oxygen Saturation: 97 % (01/08/24 21:50:00) Liters per Minute: 3 L/min (01/08/24 21:07:00) Mode of Delivery (Oxygen): Room air (01/08/24 21:50:00) FiO2: 100 % (01/08/24 17:57:00) Early Warning Score: 3 (01/08/24 22:00:06) ? Physical Exam General: Alert, oriented x3, no acute distress HEENT: Atraumatic, normocephalic, EOMI, PERRL Neck: Supple, trachea midline Respiratory: diffuse expiratory wheezing, saturating 98% on 3 L of O2 via nasal cannula CVS: S1, S2.?? Regular rhythm, tachycardic to the 100s, no rubs, murmurs or gallops, no JVD Abdomen: Soft, nontender, nondistended, positive bowel sounds, surgical site at R inguinal region appears dry, intact and without any surrounding??erythema Musculoskeletal: No deformities, no cyanosis Neuro: Alert and oriented x3, cranial nerves II to XII intact, no facial asymmetry Psych: Appropriate mood and affect, cooperative. Assessment/Plan Diagnoses Acute hypoxemic respiratory failure ??(J96.01) Atrial fibrillation ??(I48.91) BPH (benign prostatic hyperplasia) ??(N40.0) CKD (chronic kidney disease) ??(N18.9) COPD exacerbation ??(J44.1) COPD exacerbation ??(J44.1) Chronic GERD ??(K21.9) Chronic low back pain ??(M54.50) H/O right inguinal hernia repair ??(Z98.890) Hyperlipidemia ??(E78.5) Hypogammaglobulinemia ??(D80.1) DAINA (obstructive sleep apnea) ??(G47.33) ?? Assessment:??68-year-old male with history of known oxygen dependent COPD, atrial fibrillation on Eliquis, GERD, hypogammaglobulinemia, chronic low back pain, hyperlipidemia, BPH, CKD, status post right inguinal hernia repair at [facility] today 01/08/2024 presenting to the emergency department with complaints of progressively worsening shortness of breath since this afternoon. ?? Acute hypoxemic respiratory failure (J96.01) ?Caused by??COPD exacerbation (J44.1) ? Presenting with progressively worsening shortness of breath since this afternoon, denies having any fever or cough.??Chest x-ray with no acute pulmonary process.??COVID-19 is negative.??Patient does have extensive history of COPD requiring intubation in the past x 2.??He was reportedly saturating 70% on room air by EMS, not on home O2.??Was placed on 3 L of O2 via nasal cannula with improvement in oxygen saturations.??Continue with proactive management of COPD exacerbation.??Continue with DuoNebs [id number] and as needed, continue with budesonide neb, Solu-Medrol 40 mg IV twice daily and taper accordingly.??Please note patient is on prednisone 10 mg daily on a chronic basis for COPD.??He is also on low-dose azithromycin 250 mg daily, I will start him on 500 mg of azithromycin for total of 5 days given COPD exacerbation.??Continue with chest PT, pulmonary rehab nurse rachel requested.??Continue to monitor respiratory status closely, continue with theophylline. ?? H/O right inguinal hernia repair (Z98.890):??Status post right inguinal hernia repair today??at [facility] with no complications.?Site appears to be clean??and dry??with no signs of infection or discharge.??Continue to monitor closely, analgesics as needed ?? CKD (chronic kidney disease) (N18.9):??Creatinine appears to be at baseline,??repeat BMP in a.m. ?? BPH (benign prostatic hyperplasia) (N40.0):??Continue finasteride, terazosin ?? Hyperlipidemia (E78.5):??Continue??pravastatin ?? Chronic low back pain (M54.50):??Patient is on oxycodone 15 mg every 6 hours at home chronic low back pain.??Continue with the same.??He is currently complaining of severe breakthrough pain for whichwe will add IV hydromorphone, wean as appropriate. ?? Hypogammaglobulinemia (D80.1):??Gammagard every 4 weeks outpatient.?Most recent treatment was on01/04 ?? Chronic GERD (K21.9):??Continue PPI ?? Atrial fibrillation (I48.91):??Continue??diltiazem, Eliquis ?? DAINA (obstructive sleep apnea) (G47.33):??Continue CPAP??nightly??and with naps ?? VTE Prophylaxis:??Already on Eliquis ?VTE Prophylaxis Assessment:??VTE Prophylaxis Ordered ?? Discharge Planning:??Pending clinical course ?? Code Status:??Full code ?Order Code Status:??Code Status Ordered ? Histories Allergies Allergies ?(Active and Proposed Allergies Only) Spiriva? (Severity: Unknown severity, Onset: Unknown) ?Reactions: bumps of his arms ? Past Medical History/Problem List Active Problems(10) Anxiety Asthmatic bronchitis Bipolar disorder Bronchiectasis COPD exacerbation Cough Hypogammaglobulinemia Obstructive sleep apnea Osteoarthritis Shortness of breath ? Past Surgical History Colonoscopy: 08/21/20 Esophagogastroduodenoscopy and biopsy: 08/21/20 Upper gastrointestinal endoscopy including esophagus, stomach, and either the duodenum and/or jejunum as appropriate; with insertion of guide wire followed by dilation of esophagus over guide wire: 03/07/17 Colonoscopy and extirpation of lesions of colon: 12/03/14 ? Social History Alcohol Details:??Use: Never. Substance Abuse Details:??Use: Never. Tobacco Details:??Former smoker, Other: quit 20 years ago. ? Family History Mother??(): Hemorrhage Father??(): Renal disease ? Medications Home Medications Albuterol/Ipratropium (albuterol-ipratropium 3 mg-0.5 mg/3 ml inhalation solution)?3?Milliliter?Neb?4 times a day apixaban (Eliquis 5 mg oral tablet)?1?tab(s)?5?Milligram?By Mouth?2 times a day Azithromycin (azithromycin 250 mg oral tablet)?1?tab(s)?250?Milligram?By Mouth?Daily?j44.9 Diltiazem (DilTIAZem (Eqv-Cardizem CD) 300 mg/24 hours oral capsule, extended release)?1?capsule?300?Milligram?By Mouth?Daily Ferrous Sulfate (FeroSul 325 mg oral tablet)?1?tab(s)?325?Milligram?By Mouth?Daily Finasteride (finasteride 5 mg oral tablet)?1?tab(s)?5?Milligram?By Mouth?Daily Fluticasone-Salmeterol (Wixela Inhub 250 mcg-50 mcg inhalation powder)?1?inhalation?Inhalation?2 times a day?for 30?Days?rinse mouth and throat after use immune globulin intravenous and subcut (Gammagard Liquid 10% injectable solution)?See Instructions?INFUSE 40GM (400ML) INTRAVENOUSLY EVERY 4 WEEKS Levalbuterol (levalbuterol 0.63 mg/3 mL inhalation solution)?3?Milliliter?0.63?Milligram?Neb?3 times a day?for 30?Days?DX: J44.9 Oxycodone (oxyCODONE 15 mg oral tablet)?1?tab(s)?15?Milligram?By Mouth?Every 8 hours?[facility] for 28 day Pantoprazole (pantoprazole 40 mg oral delayed release tablet)?1?tab(s)?40?Milligram?By Mouth?Daily Pravastatin (pravastatin 40 mg oral tablet)?1?tab(s)?40?Milligram?By Mouth?Daily PredniSONE (predniSONE 10 mg oral tablet)?1?tab(s)?10?Milligram?By Mouth?Daily Terazosin (terazosin 5 mg oral capsule)?5?Milligram?1?capsule?By Mouth?Daily at bedtime Theophylline (theophylline 300 mg oral tablet, extended release)?1?tab(s)?300?Milligram?By Mouth?Daily?for 30?Days ? Results Recent Labs BLOOD COUNT & DIFF WBC 9.1 k/mm3 ()?? 01/08/2024 17:42 RBC 4.11 m/mm3 (Low)?? 01/08/2024 17:42 Hgb 11.3 Gm/dL (Low)?? 01/08/2024 17:42 Hct 34.3 % (Low)?? 01/08/2024 17:42 MCV 83.5 femtoliters ()?? 01/08/2024 17:42 MCH 27.5 pg ()?? 01/08/2024 17:42 MCHC 32.9 Gm/dL (Low)?? 01/08/2024 17:42 Platelet Count 194 k/mm3 ()?? 01/08/2024 17:42 RDW-SD 50.9 femtoliters (High)?? 01/08/2024 17:42 MPV 9.6 femtoliters ()?? 01/08/2024 17:42 Nucleated RBC (Automated) 0.0 #/100 WBC'S ()?? 01/08/2024 17:42 Abs. NRBC 0.0 k/mm3 ()?? 01/08/2024 17:42 Abs. Neut 6.3 k/mm3 ()?? 01/08/2024 17:42 Abs. Lymph 1.6 k/mm3 ()?? 01/08/2024 17:42 Abs. Dickenson 1.1 k/mm3 ()?? 01/08/2024 17:42 Abs. Eo 0.0 k/mm3 ()?? 01/08/2024 17:42 Abs. Baso 0.0 k/mm3 ()?? 01/08/2024 17:42 Neut % 69.5 % ()?? 01/08/2024 17:42 Lymph % 17.1 % ()?? 01/08/2024 17:42 Dickenson % 12.6 % (High)?? 01/08/2024 17:42 Eos % 0.3 % ()?? 01/08/2024 17:42 Baso % 0.1 % ()?? 01/08/2024 17:42 Imm Gran 0.4 % ()?? 01/08/2024 17:42 Abs. Imm Gran 0.0 k/mm3 ()?? 01/08/2024 17:42 ?? CARDIAC Nt-Probnp 247 pg/mL (High)?? 01/08/2024 17:42 High Sensitivity Troponin (HSTnT) 22 ng/L (High)?? 01/08/2024 20:21 ?? CHEM GENERAL Sodium 138 mmol/L ()?? 01/08/2024 17:42 Potassium 4.8 mmol/L ()?? 01/08/2024 17:42 Chloride 102 mmol/L ()?? 01/08/2024 17:42 Bicarbonate Level 26 mmol/L ()?? 01/08/2024 17:42 Anion Gap 10 ()?? 01/08/2024 17:42 Glucose Level 112 mg/dL (High)?? 01/08/2024 17:42 Glucose, POC 106 mg/dL (High)?? 01/08/2024 17:24 BUN 13 mg/dL ()?? 01/08/2024 17:42 Creatinine-Blood 1.15 mg/dL ()?? 01/08/2024 17:42 Estimated GFR Creatinine 68 ML/MIN/1.73 M2 ()?? 01/08/2024 17:42 Calcium 8.5 mg/dL (Low)?? 01/08/2024 17:42 Protein, Total 6.4 Gm/dL ()?? 01/08/2024 17:42 Albumin 3.4 Gm/dL ()?? 01/08/2024 17:42 AG Ratio 1.1 ()?? 01/08/2024 17:42 Alkaline Phosphatase 44 units/L ()?? 01/08/2024 17:42 AST (SGOT) 18 units/L ()?? 01/08/2024 17:42 ALT (SGPT) 8 units/L ()?? 01/08/2024 17:42 Bilirubin, Total 0.3 mg/dL ()?? 01/08/2024 17:42 Lactate 1.2 mmol/L ()?? 01/08/2024 20:21 ?? VIROLOGY COVID-19 by RT-PCR NEGATIVE ()?? 01/08/2024 18:24 ? EKG study * Event Display: ECG 12-Lead Authored Date: Please click on pdf link to open report * Event Display: ECG 12-Lead Authored Date: Ventricular Rate: 100 BPM Atrial Rate: 100 BPM P-R Interval: 146 ms QRS Duration: 82 ms Q-T Interval: 330 ms QTC Calculation(Bazett): 425 ms P [place]: 72 degrees R [place]: 44 degrees T [place]: 32 degrees Normal sinus rhythm Nonspecific T wave abnormality Abnormal ECG When compared with ECG of 14-Jul-2022 00:14, No significant change was found Confirmed by SAWYER CUEVAS MD ([id number]) on 01/09/2024 9:28:26 AM Foster: SAWYER CUEVAS MD Note * Елена Valdovinos LPN: PERFORM Event Display: Discharge/Transfer Note Hospital Authored Date: Nursing Discharge Note Entered On: 01/09/2024 12:08 EST Performed On: 01/09/2024 12:08 EST by Елена Valdovinos LPN Nursing Discharge Note 2 Discharge Time : 01/09/2024 12:08 EST Discharge Level of Care at Discharge : Home/Long-Term/Foster Care Patient Left Unit Via : Wheelchair Patient Accompanied Off Unit with : Responsible adult DC Instructions Provided & Signed by Pt : Yes Patient Understands D/C Instructions : Yes Patient Instructions Discharge Signed : Yes Did Pt have Specialty Bed or Wound Vac : No Елена Valdovinos LPN - 01/09/2024 12:08 EST * Елена Valdovinos LPN: PERFORM Event Display: Patient Education/Instruction Authored Date: Inpatient Adult Discharge Instructions. [address] [address] Name: ROMEO MANZANO : 1955?? Visit: 01/08/2024 17:17?? Current Date: 01/09/2024 11:21 ?? Account: [id number]?? Inpatient Adult Discharge Instructions We would like to thank you for allowing us to assist you with your healthcare needs. The following includes patient education materials and information regarding your injury/illness. Our entire staffstrives to provide an excellent experience for our patients and their families. PLEASE ENSURE YOU FOLLOW-UP PER THE INSTRUCTIONS BELOW! ?? YOUR OPINION IS IMPORTANT TO US! Please complete the survey you may receive by mail or email. Your feedback will be used to make improvements to the healthcare experiences of our patients and their families. Surveys are administered by [employer] ?? If further treatment with your primary care physician or another doctor is recommended, it is important for you to keep the appointment. Call your primary care physician or return to the Emergency Department immediately if your condition worsens, fails to improve, or new symptoms develop. If you need to find a doctor, you can call [facility] Link for a referral at [phone] or toll free at [phone]) or log in to [email or web address].. ?? [facility], in keeping with [facility] guidance, no longer requires face masks for staff, patientsor visitors in most situations. Similiar to time spent indoors at other locations, there is the chance that you were exposed to repiratory viruses during your time with us (such as flu or COVID-19). If you develop symptoms concerning for a viral respiratory infection, please seek testing (and treatment if indicated) from your medical provider or home test kit. ?? You can view and manage your care through the patient portal or by using a health care nathan of your choosing. [employer] is a website that allows you to securely view your medical information including your hospital discharge summary, office visit summaries, medications and follow-up visits. You can also request appointments, renew medications, and request access to your medical information using a health care nathan of your choosing, or just ask a question. You can enroll at [email or web address] or register during your next office visit. You have been discharged from [facility], Patient Care Unit: D3B??. If you have any questions regarding these instructions, including results of studies pending, afteryou leave, please call us and we will be happy to assist you 29/08. [facility] Your Care Team Attending Physician Misbah Leong MD?? Consulting Providers Misbah Leong MD?? Discharging Providers Misbah Leong MD Reason for Your Visit Pt coming from home, hx of COPD and intubations, here for SOB and hypoxia x 1 hr. See PALLAVI level one?? Your Diagnosis Acute hypoxemic respiratory failure Atrial fibrillation BPH (benign prostatic hyperplasia) Chronic GERD Chronic low back pain CKD (chronic kidney disease) COPD exacerbation H/O right inguinal hernia repair Hyperlipidemia Hypogammaglobulinemia DAINA (obstructive sleep apnea) Tests Performed Below is a partial list of the tests performed during your hospitalization. You may have had other tests and procedures not included in this list. Please discuss all test results with your provider. Basic Metabolic Panel BNP CBC w/ Differential Comprehensive Metabolic Panel COVID-19 (Novel Coronavirus), Rapid PCR GLUCOSE POC High??Sensitivity??Troponin T Lactate Level XR Chest Portable B Type Natriuretic Peptide (BNP)?? Basic Metabolic Panel?? CBC w/ Differential?? COVID-19 (Novel Coronavirus), Rapid PCR?? Comprehensive Metabolic Panel?? Glucose POC?? High??Sensitivity??Troponin T?? Lactic Acid Level (Lactate Level)?? Chest Portable (XR Chest Portable)?? Primary Care Provider Madyson Kerns MD? Advance Directive Health Care Proxy on File Yes - Health Care Proxy Discharge Vitals Temperature: 98.1 DegF Height: 165 cm Pulse Rate:??95 bpm??High Weight: 69.1 kg Respiratory Rate: 18 br/min Body Mass Index:??25.38 kg/m2??High Systolic Blood Pressure: 137 mm Hg Body surface area: 1.78 Diastolic Blood Pressure: 73 mm Hg ?? Oxygen Saturation: 98 % ?? Studies Pending All studies ordered during this hospital stay have been completed unless listed below. Please discuss all pending results with your provider listed above in these instructions. ?? No incomplete studies found?? What to do next Instructions From Your Doctor Please take prednisone as prescribed?? Continue to take azithromycin as prescribed. Follow up with your PCP after discharge. I have sent refills on your inhalers; please continue maintenance inhaler wixela every??day regardless of symptoms. ?? Orders? 01/09/24 11:16:00 EST?? Prescriptions??, ??01/09/24 11:16:00 EST?? Scheduled Follow-Up Appointments 2024 2:40 PM EST ?? With: Efraín Ward MD Where: [facility] Status: Pending You Need to Schedule the Following Appointments Follow Up with??Madyson Kerns MD When:??Within Within one week Where: [address] [place] [id number]- Discharge Medications ROMEO MANZANO :1955 Visit Date:01/08/2024 Medications: Please continue your medications until treatment is completed or stopped by your provider. Medications not listed below should be discontinued. Discuss any questions related to medications with your provider. What How Much When Instructions Next Dose Changed Ferrous Sulfate (FeroSul 325 mg oral tablet) 1 tab(s) Oral Daily 01/10/24 Changed Finasteride (finasteride 5 mg oral tablet) 1 tab(s) Oral Daily 01/10/24 Changed Pravastatin (pravastatin 40 mg oral tablet) 1 tab(s) Oral Daily 01/10/24 Changed PredniSONE (predniSONE 10 mg oral tablet) 2 tab(s) Oral Daily Duration: 4 Days Pickup at [facility] #[id number] 01/10/24 Changed PredniSONE (predniSONE 10 mg oral tablet) 1 tab(s) Oral Daily 01/10/24 Changed immune globulin intravenous and subcut (Gammagard Liquid 10% injectable solution) See instructions INFUSE 40GM (400ML) INTRAVENOUSLY EVERY 4 WEEKS ?? See instructions Unchanged Albuterol/ Ipratropium (albuterol-ipratropium 3 mg-0.5 mg/ 3 ml inhalation solution) 3 Milliliter Nebulized inhalation 4 times a day follow as prescribe Unchanged apixaban (Eliquis 5 mg oral tablet) 1 tab(s) Oral Twice a day 01/09/24 evening Unchanged Azithromycin (azithromycin 250 mg oral tablet) 1 tab(s) Oral Daily j44.9 ?? 01/10/24 Unchanged Diltiazem (DilTIAZem (Eqv-Cardizem CD) 300 mg/ 24 hours oral capsule, extended release) 1 capsule Oral Daily 01/10/24 Unchanged Fluticasone-Salmeterol (Wixela Inhub 250 mcg-50 mcg inhalation powder) 1 inhalation Inhalation Twice a day Duration: 30 Days rinse mouth and throat after use ?? Pickup at [facility] #[id number] 01/09/24 evening Unchanged Levalbuterol (levalbuterol 0.63 mg/ 3 mL inhalation solution) 3 Milliliter Nebulized inhalation 3 times a day Duration: 30 Days DX: J44.9 ?? Pickup at [facility] #[id number] follow as prescribe Unchanged Oxycodone (oxyCODONE 15 mg oral tablet) 1 tab(s) Oral Every 8 hours [facility] day ?? follow as prescribe Unchanged Pantoprazole (pantoprazole 40 mg oral delayed release tablet) 1 tab(s) Oral Daily 01/10/24 Unchanged Terazosin (terazosin 5 mg oral capsule) 1 capsule Oral Daily at Bedtime 01/09/24 bedtime Unchanged Theophylline (theophylline 300 mg oral tablet, extended release) 1 tab(s) Oral Daily Duration: 30 Days 01/10/24 Pharmacy Information [facility] #[id number]: [address] [place], [place] [id number] [phone] ?? What How Much When Comments Stop Taking Albuterol (Albuterol (Eqv-ProAir HFA) 90 mcg/ inh inhalation aerosol) 2 puff(s) Inhalation Every 6 hours use with spacer chamber PRN ?? Stop Taking Calcium And Vitamin D Combination (Calcium 250 mg + Vitamin D 125 IU Tablet) 2 tablets Oral Twice a day [facility] 200 for 50 days ?? Stop Taking Divalproex Sodium (Depakote ER 500 mg oral tablet, extended release) 3 tablets Oral Daily [facility] 180 for 60 days ?? Stop Taking Docusate (docusate sodium 100 mg oral capsule) 1 capsule Oral Daily filled at [facility] 30 for 30 ?? Stop Taking Famotidine (famotidine 20 mg oral tablet) 1 tab(s) Oral Twice a day Stop Taking Famotidine (famotidine 20 mg oral tablet) 1 tab(s) Oral Twice a day Stop Taking Folic Acid (folic acid 1 mg oral tablet) 1 tab(s) Oral Daily Stop Taking Loratadine (loratadine 10 mg oral tablet) 1 tab(s) Oral Daily Stop Taking Montelukast (montelukast 10 mg oral tablet) 1 tab(s) Oral Daily in PM Stop Taking NIFEdipine (NIFEdipine 30 mg oral tablet, extended release) 1 tab(s) Oral Daily [facility] 90 [facility] 90 ?? Stop Taking Omeprazole (omeprazole 20 mg oral enteric coated capsule) 1 capsule Oral Daily Stop Taking Quetiapine (QUEtiapine 200 mg oral tablet) 1 tab(s) Oral Daily at Bedtime [facility] filled 30 tabs ?? Stop Taking Tamsulosin (tamsulosin 0.4 mg oral capsule) 1 capsule Oral Daily Prescription Given During Visit Fluticasone-Salmeterol (Wixela Inhub 250 mcg-50 mcg inhalation powder) - 1 inhalation, Inhalation, 2 times a day, # 1 each, 11 Refills, rinse mouth and throat after use, [facility] #[id number], [address] [place] [phone]?? Levalbuterol (levalbuterol 0.63 mg/3 mL inhalation solution) - 3 mL = 0.63 mg, Neb, 3 times a day, # 270 each, 11 Refills, DX: J44.9, [facility] #[id number], [address], [place] [phone]?? PredniSONE (predniSONE 10 mg oral tablet) - 2 tablet = 20 mg, By Mouth, Daily, # 8 tablet, 0 Refills, [facility] #76391, [address] [place] [phone]?? Laboratory Results Below is a partial list of the most recent Laboratory test results done prior to this discharge. You may have had other tests and procedures not included in this list. Please discuss all test resultswith your provider. Est Creatinine Clearance - 53.79 mL/min (01/09/2024) Basic Metabolic Panel (01/09/2024) ???Sodium - 137 mmol/L???Potassium - 4.8 mmol/L???Chloride - 103 mmol/L???Bicarbonate Level - 25 mmol/L???Anion Gap - 9???Glucose Level - 184 mg/dL???BUN - 21 mg/dL???Creatinine-Blood - 1.11 mg/dL???Estimated GFR Creatinine - 71 ML/MIN/1.73 M2???Calcium - 8.9 mg/dL BNP (01/08/2024) ???Nt-Probnp - 247 pg/mL CBC w/ Differential (01/09/2024) ???WBC - 8.4 k/mm3???RBC - 3.49 m/mm3???Hgb - 9.5 Gm/dL???Hct - 28.5 %???MCV - 81.7 femtoliters???MCH - 27.2 pg???MCHC - 33.3 Gm/dL???Platelet Count - 168 k/mm3???RDW-SD - 49.6 femtoliters???MPV - 10.1 femtoliters???Nucleated RBC (Automated) - 0.0 #/100 WBC'S???Abs. NRBC - 0.0 k/mm3???Abs. Neut - 7.5 k/mm3???Abs. Lymph - 0.4 k/mm3???Abs. Dickenson - 0.5 k/mm3???Abs. Eo - 0.0 k/mm3???Abs. Baso - 0.0 k/mm3???Neut % - 89.3 %???Lymph % - 4.1 %???Dickenson % - 6.0 %???Eos % - 0.0 %???Baso % - 0.1 %???Imm Gran- 0.5 %???Abs. Imm Gran - 0.0 k/mm3 Comprehensive Metabolic Panel (01/08/2024) ???Sodium - 138 mmol/L???Potassium - 4.8 mmol/L???Chloride - 102 mmol/L???Bicarbonate Level - 26 mmol/L???Anion Gap - 10???Glucose Level - 112 mg/dL???BUN - 13 mg/dL???Creatinine-Blood - 1.15 mg/dL???Estimated GFR Creatinine - 68 ML/MIN/1.73 M2???Calcium - 8.5 mg/dL???Protein, Total - 6.4 Gm/dL???Albumin - 3.4 Gm/dL???AG Ratio - 1.1???Alkaline Phosphatase - 44 units/L???AST (SGOT) - 18 units/L???ALT (SGPT) - 8 units/L???Bilirubin, Total - 0.3 mg/dL COVID-19 (Novel Coronavirus), Rapid PCR (01/08/2024) ???COVID-19 by RT-PCR - NEGATIVE GLUCOSE POC (01/08/2024) ???Glucose, POC - 106 mg/dL High??Sensitivity??Troponin T (01/08/2024) ???High Sensitivity Troponin (HSTnT) - 22 ng/L Lactate Level (01/08/2024) ???Lactate - 1.2 mmol/L You will be contacted within 72 hours with your results. Immunizations This Visit Not Given Vaccine Commentsinfluenza virus vaccine, inactivated Patient Refuses Allergies (NKA means No Known Allergies) Spiriva??(bumps of his arms) Problems Active Problems??(10) Anxiety?? Asthmatic bronchitis?? Bipolar disorder?? Bronchiectasis?? COPD exacerbation?? Cough?? Hypogammaglobulinemia?? Obstructive sleep apnea?? Osteoarthritis?? Shortness of breath?? Education Materials Below is the list of Educational Leaflet Providered with your Discharge Instructions. Valuables and Belongings I fully understand and agree that [facility] accepts no responsibility for all my personal property including clothing, toilet articles, radios, jewelry, dentures, hearing aids, rings, money, or any other property that is in my possession or is brought to me after admission. I understand certain valuables may be placed in a hospital safe for a short period of time. I understand that the hospital is not liable for loss or damage due to accident, fire, or other natural occurrence while said property is in the safe. I accept full responsibility for any personal property that I keep with me, and will not hold the hospital responsible in case of loss or disappearance. I acknowledge that i have been encouraged to send valuables and belongings home. ?? Review of Valuable and Belonging List: With patient, With witness Date for Pt to Sign Valuables/Belongings: 01/08/24 22:06:00 ?? Other Discharge Information ? Pulmonary Rehab Status?? Pulmonary Rehab Discharge Status?? Respiratory Rate: 18 br/min ? Common Emergency Awareness Tips IS IT A STROKE? Act FAST and Check for these signs: FACE Does the face look uneven? ARM Does one arm drift down? SPEECH Does their speech sound strange? TIME Call at any sign of stroke ?? Heart Attack Signs Chest discomfort: Most heart attacks involve discomfort in the center of the chest and lasts more than a few minutes, or goes away and comes back. It can feel like uncomfortable pressure, squeezing, fullness or pain. Discomfort in upper body: Symptoms can include pain or discomfort in one or both arms, back, neck, jaw or stomach. Shortness of breath: With or without discomfort. Other signs: Breaking out in a cold sweat, nausea, or lightheaded. Remember, MINUTES DO MATTER. If you experience any of these heart attack warning signs, call to get immediate medical attention! ?? Smoking can increase your chances of developing chronic health problems and can cause harmful effects to other family members in your house. If you smoke, you are strongly encouraged to quit. Please call [facility] [facility] at [phone] or [phone] ([phone]) or log in to [email or web address] for referrals to smoking cessation programs. ?? 280 Suicide & Crisis Lifeline is available 29/08 if you or someone you know needs to find a reason to keep living. By calling 359 you'll be connected to a skilled, trained counselor at a crisis center in your area. INPATIENT DISCHARGE INSTRUCTIONS SIGNATURE PAGE ROMEO MANZANO Location:[facility] Registration Date and Time:01/08/2024 17:17 EST Primary Care Physician: Madyson Kerns MD, Attending Physician: Misbah Leong MD, I ROMEO MANZANO, have received the above patient education materials/instructions and have verbalized understanding. If ambulance or transport services are being used I further acknowledge being given a choice of service. ?? If you need to contact me, please call me at this number: . Patient/Automotive Collision Repair Instructor Name: Patient/Automotive Collision Repair Instructor Signature: Relationship to Patient: Witness Name/Signature: Date: Patient Care team information Care Team Personnel Name: Shaheen Solares RN Position: S RN Member Role: Primary Care Nurse Name: Emely Lopez RN Position: S RN Member Role: Primary Care Nurse Name: Carolina Willis RN Position: [facility] RN Member Role: Primary Care Nurse Name: Jovanna Israel RN Position: S RN Member Role: Primary Care Nurse Name: Kaitlyn Larsen RN Position: S RN Member Role: Primary Care Nurse Name: Shaheen Dill RN Position: [facility] RN Member Role: Primary Care Nurse Name: Keely Salgado Position: [facility] Outreach Member Role: Lifetime Consulting Physician Name: Juana Carbone RN Position: [facility] RN Member Role: Primary Care Nurse Name: Tatianna Guy RN Position: [facility] Onco RN Member Role: Primary Care Nurse Name: Zayra Irvin RN Position: [facility] RN Member Role: Primary Care Nurse Name: Jeanna Simpson RN Position: [facility] ED RN W/OE and Tasks Member Role: Primary Care Nurse Name: Karime Dhillon NP Position: [facility] Associate Professional Member Role: Lifetime Consulting Provider Address: [address] [place] [address] [address] [facility] [place] [place] [address]- Telecom: Name: Alfa Starr MD Position: [facility] Renal MD Member Role: Lifetime Consulting Physician Address: [address] [place] [address] [address] [facility] [place] [address]- Telecom: Name: Geoff Boswell RN Position: [facility] RN Member Role: Primary Care Nurse Name: Monica Gerardo RN Position: [facility] SN RN Member Role: Primary Care Nurse Name: Madyson Kerns MD Position: Reference Physician Member Role: PCP Address: [address] [place] [id number] Telecom: Name: Sylvia Whitman RN Position: [facility] OB RN Member Role: Primary Care Nurse Name: Radha Mclaughlin RN Position: [facility] AMB Nurse Member Role: Primary Care Nurse Name: Araceli Sanders RN Position: [facility] SOBEIDA Office Staff Member Role: Primary Care Nurse Name: Emely Chavez LPN Position: [facility] RN Member Role: Primary Care Nurse Name: Susanna Whitten RN Position: [facility] RN Member Role: Primary Care Nurse Name: Ava Reveles RN Position: [facility] RN Member Role: Primary Care Nurse Care Team Related Persons Name: RORY WIN Name: SUZI MANZANO Insurance Providers Guarantor name: ROMEO [employer] Information #: 2 Payer: MEDICARE PART B OUTPT Member Number: [id number] Policy Number: NA Group Number: NA Health Plan Information #: 1 Payer: [facility] Member Number: [id number] Policy Number: NA Group Number: NA Health Plan Information #: 4 Payer: [employer] [facility] Member Number: [id number] Policy Number: MADIE Group Number: NA Health Plan Information #: 3 Payer: [facility] Member Number: [id number] Policy Number: NA Group Number: NA
--- OUTSIDE RECORDS SUMMARY | 2024-01-29 13:39 | XMS_ITS | Clinical Summary ---
Author Organization Unknown Care Team Providers Care Cable Mechanic Name Role Phone TOMI BRASWELL, DELMI Unavailable Regina SON RN, TALIA Unavailable Unavailable [facility]NA ([facility]) [facility], EZ[facility] Unavailable U navailable Payers Payer Name Policy Type Policy Number Effective Date Expira tion Date [employer] MEDICARE ADVANTAGE FFS - ORDER DRIVEN [id number] MEDICARE - [place] - PDGM [id number] Problems Condition Name Condition Details Condition Category Status Onset Date Resolution Date Last Treatment Date Treating Clinician Comments PAROXYSMAL ATRIAL FIBRILLATION Active 02-06 00:00: 00 EMPHYSEMA, UNSPECIFIED Active 02-06 00:00: 00 OTHER SPECIFIED RHEUMATOID ARTHRITIS, MULTIPLE SITES Active 02-06 00:00: 00 BIPOLAR DISORDER, UNSPECIFIED Active 02-06 00:00: 00 HYPERTENSIVE CHRONIC KIDNEY DISEASE 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 Active 02-06 00:00: 00 CHRONIC KIDNEY DISEASE, STAGE 3 UNSPECIFIED Active 02-06 00:00: 00 ANEMIA IN CHRONIC KIDNEY DISEASE Active 02-06 00:00: 00 ANXIETY DISORDER, UNSPECIFIED Active 02-06 00:00: 00 BENIGN PROSTATIC HYPERPLASIA WITHOUT LOWER URINRY TRACT SYMP Active 02-06 00:00: 00 POLYOSTEOART HRITIS, UNSPECIFIED Active 02-06 00:00: 00 OTHER CHRONIC PAIN Active 02-06 00:00: 00 DORSALGIA, UNSPECIFIED Active 02-06 00:00: 00 PURE HYPERCHOLEST EROLEMIA, UNSPECIFIED Active 02-06 00:00: 00 OLD MYOCARDIAL INFARCTION Active 02-06 00:00: 00 HYPOTENSION, UNSPECIFIED Active 02-06 00:00: 00 OBSTRUCTIVE SLEEP APNEA (ADULT) (PEDIATRIC) Active 02-06 00:00: 00 GASTRO-ESOPH AGEAL REFLUX DISEASE WITHOUT ESOPHAGITIS Active 02-06 00:00: 00 PERSONAL HISTORY OF OTHER MALIGNANT NEOPLASM OF KIDNEY Active 02-06 00:00: 00 PERSONAL HISTORY OF NICOTINE DEPENDENCE Active 02-06 00:00: 00 HALF-WAY (CURRENT) USE OF ANTICOAGULAN TS Active 02-06 00:00: 00 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 Ordering Clinician Indication Dosage Frequency Signature (SIG) Comments Components albuterol sulf 90 mcg/actuati on breath activated powder inhaler,sen sor 2018-02 00:00: 00 12-20 23:59 :00 No [id number] 1 inhalat ion NEEDED 1 inhalation NEEDED (route: inhalation ) Med Classific ation: Respirato ry Therapy Agents BromSite 0.075 % eye drops 2018-02 00:00: 00 09-17 23:59 :00 No [id number] 1 drops TWICE A DAY START TWO DAYS 1 drops TWICE A DAY START TWO DAYS (route: ophthalmic (eye)) Alternate Route: INTO OPERATIVE EYE. Med Classific ation: Ophthalmi c Agents DOK 100 mg capsule 2018-02 00:00: 00 12-20 23:59 :00 No [id number] 1 capsule NEEDED 1 capsule NEEDED (route: oral) Med Classific ation: Gastroint estinal Therapy Agents finasteride 5 mg tablet 9-19 00:00: 00 12-20 23:59 :00 No [id number] 1 tablet ONCE DAILY 1 tablet ONCE DAILY (route: oral) Alternate Route: BY MOUTH. Med Classific ation: Genitouri nary Therapy loratadine 10 mg capsule 2018-02 00:00: 00 12-20 23:59 :00 No [id number] 1 capsule DAILY 1 capsule DAILY (route: oral) Med Classific ation: Respirato ry Therapy Agents methylpredn isolone 4 mg tablet 02-13 00:00: 00 12-20 23:59 :00 No [id number] 1 mg DAILY 1 mg DAILY (route: oral) Med Classific ation: Endocrine oxycodone 20 mg tablet 02-13 00:00: 00 12-20 23:59 :00 No [id number] 1 tablet NEEDED 1 tablet NEEDED (route: oral) Med Classific ation: Analgesic , Anti-infl ammatory or Antipyret ic pantoprazol e 40 mg tablet,joy yed release 2018-02 00:00: 00 12-20 23:59 :00 No [id number] 1 tablet DAILY 1 tablet DAILY (route: oral) Med Classific ation: Gastroint estinal Therapy Agents pravastatin 40 mg tablet 2018-02 00:00: 00 12-20 23:59 :00 No [id number] 1 tablet BEDTIME 1 tablet BEDTIME (route: oral) Med Classific ation: Cardiovas cular Therapy Agents prednisone 10 mg tablet 2018-02 00:00: 00 12-20 23:59 :00 No [id number] 1 tablet DAILY 1 tablet DAILY (route: oral) Med Classific ation: Endocrine Pulmicort 0.25 mg/2 mL suspension for nebulizatio n 02-13 00:00: 00 12-20 23:59 :00 No [id number] Per instruc tions 2 TIMES DAILY Per instructio ns 2 TIMES DAILY (route: inhalation ) Med Classific ation: Respirato ry Therapy Agents quetiapine 100 mg tablet 02-13 00:00: 00 12-20 23:59 :00 No [id number] 1 tablet BEDTIME 1 tablet BEDTIME (route: oral) Med Classific ation: Central Nervous System Agents sulfasalazi ne 500 mg tablet 1-08 00:00: 00 12-20 23:59 :00 No [id number] 1 tablet 2 TIMES DAILY 1 tablet 2 TIMES DAILY (route: oral) Med Classific ation: Gastroint estinal Therapy Agents Symbicort 160 mcg-4.5 mcg/actuati on HFA aerosol inhaler 17 00:00: 00 12-20 23:59 :00 No [id number] 1 puff 2 TIMES DAILY 1 puff 2 TIMES DAILY (route: inhalation ) Med Classific ation: Respirato ry Therapy Agents tamsulosin 0.4 mg capsule 2018-02 00:00: 00 12-20 23:59 :00 No [id number] 1 capsule DAILY 1 capsule DAILY (route: oral) Med Classific ation: Genitouri nary Therapy Isiah-24 300 mg capsule,ext ended release 2018-02 00:00: 00 12-20 23:59 :00 No [id number] 1 capsule ONCE DAILY 1 capsule ONCE DAILY (route: oral) Alternate Route: BY MOUTH. Med Classific ation: Respirato ry Therapy Agents Symbicort 160 mcg-4.5 mcg/actuati on HFA aerosol inhaler 04-20 00:00: 00 12-20 00:00 :00 No [id number] Per instruc tions Per instructio ns (route: inhalation ) Med Classific ation: Respirato ry Therapy Agents Symbicort 160 mcg-4.5 mcg/actuati on HFA aerosol inhaler 15 00:00: 00 12-20 00:00 :00 No [id number] Per instruc tions Per instructio ns (route: inhalation ) Med Classific ation: Respirato ry Therapy Agents azithromyci n 250 mg tablet 04-18 00:00: 00 11-27 23:59 :00 No [id number] Per instruc tions DAILY Per instructio ns DAILY (route: oral) Med Classific ation: Anti-Infe ctive Agents Gammagard Liquid 10 % injection solution 2023-0 3-13 00:00: 00 12-20 00:00 :00 No [id number] Per instruc tions Per instructio ns (route: injection) Med Classific ation: Biologica ls prednisone 10 mg tablet 04-13 00:00: 00 12-20 23:59 :00 No [id number] 1 tablet DAILY 1 tablet DAILY (route: oral) Med Classific ation: Endocrine docusate sodium 100 mg capsule 04-12 00:00: 00 12-20 23:59 :00 No [id number] Unavailable Per instruc tions EVERY DAY Per instructio ns EVERY DAY (route: oral) Med Classific ation: Gastroint estinal Therapy Agents tamsulosin 0.4 mg capsule 04-11 00:00: 00 12-20 23:59 :00 No [id number] Per instruc tions EVERY DAY 30 MINUTES Per instructio ns EVERY DAY 30 MINUTES (route: oral) Med Classific ation: Genitouri nary Therapy azithromyci n 250 mg tablet 03-26 00:00: 00 12-20 23:59 :00 No [id number] Per instruc tions DAILY FOR 30 DAYS Per instructio ns DAILY FOR 30 DAYS (route: oral) Med Classific ation: Anti-Infe ctive Agents prednisone 10 mg tablet 2022-02 00:00: 00 Yes [id number] Per instruc tions DAILY Per instructio ns DAILY (route: oral) Med Classific ation: Endocrine levalbutero l HFA 45 mcg/actuati on aerosol inhaler 2022-02 00:00: 00 Yes [id number] Per instruc tions EVERY 6 HOURS NEEDED Per instructio ns EVERY 6 HOURS NEEDED (route: inhalation ) Med Classific ation: Respirato ry Therapy Agents Gammagard Liquid 10 % injection solution 2022-02 00:00: 00 Yes [id number] Per instruc tions MONTHLY Per instructio ns MONTHLY (route: injection) Med Classific ation: Biologica ls docusate sodium 100 mg capsule 2022-02 0-24 00:00: 00 Yes [id number] Unavailable Per instruc tions DAILY Per instructio ns DAILY (route: oral) Med Classific ation: Gastroint estinal Therapy Agents pravastatin 40 mg tablet 2022-02 0-24 00:00: 00 Yes [id number] Per instruc tions DAILY Per instructio ns DAILY (route: oral) Med Classific ation: Cardiovas cular Therapy Agents theophyllin e ER 300 mg tablet,exte nded release,12 hr 2022-02 0- 00:00: 00 11-27 23:59 :00 No [id number] Per instruc tions DAILY Per instructio ns DAILY (route: oral) Med Classific ation: Respirato ry Therapy Agents tamsulosin 0.4 mg capsule 2022-02 0-20 00:00: 00 10-03 23:59 :00 No [id number] Per instruc tions AT BEDTIME Per instructio ns AT BEDTIME (route: oral) Med Classific ation: Genitouri nary Therapy Symbicort 160 mcg-4.5 mcg/actuati on HFA aerosol inhaler 2022-02 0-11 00:00: 00 12-20 00:00 :00 No [id number] Per instruc tions TWICE DAILY Per instructio ns TWICE DAILY (route: inhalation ) Med Classific ation: Respirato ry Therapy Agents prednisone 10 mg tablet 2022-02 2-25 00:00: 00 02-03 23:59 :00 No [id number] Per instruc tions DAILY Per instructio ns DAILY (route: oral) Med Classific ation: Endocrine pravastatin 40 mg tablet 4-16 00:00: 00 06-01 00:00 :00 No [id number] Per instruc tions DAILY Per instructio ns DAILY (route: oral) Med Classific ation: Cardiovas cular Therapy Agents levalbutero l HFA 45 mcg/actuati on aerosol inhaler 4-08 00:00: 00 06-01 00:00 :00 No [id number] Per instruc tions EVERY 6 HOURS NEEDED Per instructio ns EVERY 6 HOURS NEEDED (route: inhalation ) Med Classific ation: Respirato ry Therapy Agents finasteride 5 mg tablet 05-11 00:00: 00 11-27 23:59 :00 No [id number] Unavailable Per instruc tions DAILY Per instructio ns DAILY (route: oral) Med Classific ation: Genitouri nary Therapy terazosin 5 mg capsule 05-11 00:00: 00 06-01 00:00 :00 No [id number] Unavailable Per instruc tions AT BEDTIME Per instructio ns AT BEDTIME (route: oral) Med Classific ation: Cardiovas cular Therapy Agents theophyllin e ER 300 mg tablet,exte nded release,12 hr 05-11 00:00: 00 06-01 00:00 :00 No [id number] Per instruc tions DAILY Per instructio ns DAILY (route: oral) Med Classific ation: Respirato ry Therapy Agents Eliquis 5 mg tablet 05-09 00:00: 00 Yes [id number] Per instruc tions TWICE DAILY Per instructio ns TWICE DAILY (route: oral) Med Classific ation: Hematolog ical Agents albuterol sulfate HFA 90 mcg/actuati on aerosol inhaler 05-07 00:00: 00 Yes [id number] Per instruc tions EVERY 6 HOURS NEEDED Per instructio ns EVERY 6 HOURS NEEDED (route: inhalation ) Med Classific ation: Respirato ry Therapy Agents Gammagard Liquid 10 % injection solution 05-01 00:00: 00 06-01 00:00 :00 No [id number] Per instruc tions Per instructio ns (route: injection) Med Classific ation: Biologica ls acetaminoph en 325 mg tablet 06-01 00:00: 00 10-03 23:59 :00 No [id number] 2 tablet NEEDED 2 tablet NEEDED (route: oral) Med Classific ation: Analgesic , Anti-infl ammatory or Antipyret ic diltiazem CD 300 mg capsule,ext ended release 24 hr 06-01 00:00: 00 10-03 23:59 :00 No [id number] 1 capsule BEDTIME 1 capsule BEDTIME (route: oral) Med Classific ation: Cardiovas cular Therapy Agents divalproex ER 500 mg tablet,exte nded release 24 hr 06-01 00:00: 00 Yes [id number] 3 tablet BEDTIME 3 tablet BEDTIME (route: oral) Med Classific ation: Central Nervous System Agents doxazosin 4 mg tablet 06-01 00:00: 00 10-03 23:59 :00 No [id number] 1 tablet BEDTIME 1 tablet BEDTIME (route: oral) Med Classific ation: Cardiovas cular Therapy Agents montelukast 10 mg tablet 06-01 00:00: 00 10-03 23:59 :00 No [id number] 1 tablet BEDTIME 1 tablet BEDTIME (route: oral) Med Classific ation: Respirato ry Therapy Agents nifedipine ER 30 mg tablet,exte nded release 06-01 00:00: 00 Yes [id number] 1 tablet DAILY 1 tablet DAILY (route: oral) Med Classific ation: Cardiovas cular Therapy Agents oxycodone 20 mg tablet 06-01 00:00: 00 07-26 23:59 :00 No [id number] 1 tablet NEEDED 1 tablet NEEDED (route: oral) Med Classific ation: Analgesic , Anti-infl ammatory or Antipyret ic quetiapine 200 mg tablet 06-01 00:00: 00 Yes [id number] 1 tablet BEDTIME 1 tablet BEDTIME (route: oral) Med Classific ation: Central Nervous System Agents prednisone 10 mg tablet 05-30 00:00: 00 06-07 23:59 :00 No [id number] Per instruc tions DAILY Per instructio ns DAILY (route: oral) Med Classific ation: Endocrine OxyContin 15 mg tablet,alycia h resistant,e xtended release 07-31 00:00: 00 08-01 23:59 :00 No [id number] 1 tablet EVERY 6 HOURS 1 tablet EVERY 6 HOURS (route: oral) Med Classific ation: Analgesic , Anti-infl ammatory or Antipyret ic oxycodone 15 mg tablet 08-01 00:00: 00 10-03 23:59 :00 No [id number] 15 mg 3 TIMES DAILY 15 mg 3 TIMES DAILY (route: oral) Med Classific ation: Analgesic , Anti-infl ammatory or Antipyret ic Bel[place] 75 mcg buccal film 08-01 00:00: 00 Yes [id number] 1 film 2 TIMES DAILY 1 film 2 TIMES DAILY (route: buccal) Med Classific ation: Analgesic , Anti-infl ammatory or Antipyret ic buprenorphi ne HCl 75 mcg buccal film 08-03 00:00: 00 10-03 23:59 :00 No [id number] 1 film, medicat ed EVERY 12 HOURS 1 film, medicated EVERY 12 HOURS (route: buccal) Med Classific ation: Analgesic , Anti-infl ammatory or Antipyret ic prednisone 5 mg tablets in a dose pack 08-27 00:00: 00 09-04 23:59 :00 No [id number] Per instruc tions DIRECTED Per instructio ns DIRECTED (route: oral) Med Classific ation: Endocrine amoxicillin 875 mg-potassiu m clavulanate 125 mg tablet 10-03 00:00: 00 10-09 23:59 :00 No [id number] 1 tablet 2 TIMES DAILY 1 tablet 2 TIMES DAILY (route: oral) Med Classific ation: Anti-Infe ctive Agents iron 325 mg (65 mg iron) tablet 10-03 00:00: 00 Yes [id number] 1 tablet DAILY 1 tablet DAILY (route: oral) Med Classific ation: Electroly te Balance-N utritiona l Products loratadine 10 mg tablet 10-03 00:00: 00 Yes [id number] 1 tablet DAILY 1 tablet DAILY (route: oral) Med Classific ation: Respirato ry Therapy Agents omeprazole 20 mg tablet,joy yed release 10-03 00:00: 00 Yes [id number] 1 tablet DAILY 1 tablet DAILY (route: oral) Med Classific ation: Gastroint estinal Therapy Agents oxycodone 5 mg tablet 10-03 00:00: 00 Yes [id number] 3 tablet EVERY 6 HOURS 3 tablet EVERY 6 HOURS (route: oral) Med Classific ation: Analgesic , Anti-infl ammatory or Antipyret ic Tylenol Extra Strength 500 mg tablet 10-03 00:00: 00 Yes [id number] 2 tablet EVERY 6 HOURS 2 tablet EVERY 6 HOURS (route: oral) Med Classific ation: Analgesic , Anti-infl ammatory or Antipyret ic finasteride 5 mg tablet 2023-02 00:00: 00 Yes [id number] 10 mg DAILY 10 mg DAILY (route: oral) Med Classific ation: Genitouri nary Therapy quetiapine 25 mg tablet 2023-02 00:00: 00 Yes [id number] 1 tablet DAILY 1 tablet DAILY (route: oral) Med Classific ation: Central Nervous System Agents roflumilast 500 mcg tablet 2023-02 00:00: 00 Yes [id number] 1 tablet DAILY 1 tablet DAILY (route: oral) Med Classific ation: Respirato ry Therapy Agents Singulair 10 mg tablet 2023-02 00:00: 00 Yes [id number] 1 tablet BEDTIME 1 tablet BEDTIME (route: oral) Med Classific ation: Respirato ry Therapy Agents Symbicort 160 mcg-4.5 mcg/actuati on HFA aerosol inhaler 2023-02 00:00: 00 Yes [id number] 2 puff 2 TIMES DAILY 2 puff 2 TIMES DAILY (route: inhalation ) Med Classific ation: Respirato ry Therapy Agents terazosin 5 mg capsule 2023-02 00:00: 00 Yes [id number] 1 capsule BEDTIME 1 capsule BEDTIME (route: oral) Med Classific ation: Cardiovas cular Therapy Agents theophyllin e ER 400 mg tablet,exte nded release 24 hr 2023-02 00:00: 00 Yes [id number] 1 tablet DAILY 1 tablet DAILY (route: oral) Med Classific ation: Respirato ry Therapy Agents Vitamin C 250 mg tablet 2023-02 00:00: 00 Yes [id number] 1 tablet DAILY 1 tablet DAILY (route: oral) Med Classific ation: Electroly te Balance-N utritiona l Products Vital Signs Vital Name Observation Time Observation Value Commen ts Temperature 2023-12-12 15:27:00.000 97.5 [degF] Temperature 2023-12-07 11:46:00.000 97.3 [degF] Pulse 2023-12-12 15:27:00.000 83 /min Pulse 2023-12-07 11:46:00.000 90 /min O2 Saturation (%) 2023-12-12 15:27:00.000 99 % O2 Saturation (%) 2023-12-07 11:46:00.000 99 % Respirations 2023-12-12 15:27:00.000 18 /min Respirations 2023-12-07 11:46:00.000 18 /min Weight (lbs) 2023-12-07 11:46:00.000 153 [lb_av] Systolic Blood Pressure 2023-12-12 15:27:00.000 126 mm [Hg] Systolic Blood Pressure 2023-12-07 11:46:00.000 130 mm [Hg] Diastolic Blood Pressure 2023-12-12 15:27:00.000 78 mm [Hg] Diastolic Blood Pressure 2023-12-07 11:46:00.000 62 mm [Hg] Plan of Treatment Planned Activity Planned Date Details Comments Future Scheduled Test SKILLED NU RSE TO EVALUATE PATIENT, IDENTIFY PRIMARY AND CO-MORBID CONDITIONS CODED PER CODING GUIDELINES, AND DEVELOP PATIENT SPECIFIC PLAN OF CARE THAT INCLUDES PATIENT GOAL FOR HOME HEALTH. [code = SKILLED NURSE TO EVALUATE PATIENT, IDENTIFY PRIMARY AND CO-MORBID CONDITIONS CODED PER CODING GUIDELINES, AND DEVELOP PATIENT SPECIFIC PLAN OF CARE THAT INCLUDES PATIENT GOAL FOR HOME HEALTH.] Future Scheduled Test SKILLED NU RSE TO REVIEW PATIENT MEDICATIONS. INSTRUCT PATIENT/CAREGIVER ON MONITORING OF EFFECTIVENESS, ADVERSE DRUG REACTIONS, SIDE EFFECTS OF ALL MEDICATIONS (PRESCRIPTION/-OTC), AND HOW AND WHEN TO REPORT PROBLEMS. [code = SKILLED NURSE TO REVIEW PATIENT MEDICATIONS. INSTRUCT PATIENT/CAREGIVER ON MONITORING OF EFFECTIVENESS, ADVERSE DRUG REACTIONS, SIDE EFFECTS OF ALL MEDICATIONS (PRESCRIPTION/-OTC), AND HOW AND WHEN TO REPORT PROBLEMS.] Future Scheduled Test SKILLED NU RSE TO ASSESS ANXIETY AND PROVIDE ASSISTANCE TO PATIENT FOR UNDERSTANDING AND MANAGEMENT OF FEELINGS. [code = SKILLED NURSE TO ASSESS ANXIETY AND PROVIDE ASSISTANCE TO PATIENT FOR UNDERSTANDING AND MANAGEMENT OF FEELINGS.] Future Scheduled Test SKILLED NU RSE FOR INSTRUCTION/ REINFORCEMENT OF NEEDS RELATED TO NUTRITION/HYDRATION. [code = SKILLED NURSE FOR INSTRUCTION/ REINFORCEMENT OF NEEDS RELATED TO NUTRITION/HYDRATION.] Future Scheduled Test SKILLED NU RSE FOR O/A, TEACHING RELATED TO HX ABSCESS FOR EARLY IDENTIFICATION OF EXACERBATION OF DISEASE PROCESS. [code = SKILLED NURSE FOR O/A, TEACHING RELATED TO HX ABSCESS FOR EARLY IDENTIFICATION OF EXACERBATION OF DISEASE PROCESS.] Future Scheduled Test SKILLED NU RSE FOR O/A, TEACHING AND MANAGEMENT OF BPH FOR EARLY IDENTIFICATION OF EXACERBATION OF DISEASE PROCESS [code = SKILLED NURSE FOR O/A, TEACHING AND MANAGEMENT OF BPH FOR EARLY IDENTIFICATION OF EXACERBATION OF DISEASE PROCESS] Future Scheduled Test SKILLED NU RSE FOR O/A OF RESPIRATORY SYSTEM TO IDENTIFY CHANGES ASSOCIATED WITH EXACERBATION AND TO PROVIDE SKILLED TEACHING ON MANAGEMENT OF EMPHYSEMA RESPIRATORY DISEASE PROCESS. [code = SKILLED NURSE FOR O/A OF RESPIRATORY SYSTEM TO IDENTIFY CHANGES ASSOCIATED WITH EXACERBATION AND TO PROVIDE SKILLED TEACHING ON MANAGEMENT OF EMPHYSEMA RESPIRATORY DISEASE PROCESS.] Future Scheduled Test SKILLED NU RSE FOR O/A AND SKILLED TEACHING RELATED TO SIGNS AND SYMPTOMS OF INFECTION AND INFECTION CONTROL MEASURES. [code = SKILLED NURSE FOR O/A AND SKILLED TEACHING RELATED TO SIGNS AND SYMPTOMS OF INFECTION AND INFECTION CONTROL MEASURES.] Future Scheduled Test SKILLED NU RSE TO ASSESS PATIENTS PSYCHOSOCIAL STATUS TO IDENTIFY POTENTIAL ISSUES THAT MAY COMPLICATE THE PROVISION OF THE PLAN OF CARE INCLUDING THE PATIENTS ABILITY TO ACCESS COMMUNITY RESOURCES AND PSYCHOSOCIAL SUPPORT SERVICES. [code = SKILLED NURSE TO ASSESS PATIENTS PSYCHOSOCIAL STATUS TO IDENTIFY POTENTIAL ISSUES THAT MAY COMPLICATE THE PROVISION OF THE PLAN OF CARE INCLUDING THE PATIENTS ABILITY TO ACCESS COMMUNITY RESOURCES AND PSYCHOSOCIAL SUPPORT SERVICES.] Future Scheduled Test SKILLED NU RSE TO INSTRUCT PATIENT/CAREGIVER ON SIGNS AND SYMPTOMS, RISK FACTORS, COMPLICATIONS, AND MANAGEMENT OF ATRIAL FIBRILLATION. [code = SKILLED NURSE TO INSTRUCT PATIENT/CAREGIVER ON SIGNS AND SYMPTOMS, RISK FACTORS, COMPLICATIONS, AND MANAGEMENT OF ATRIAL FIBRILLATION.] Future Scheduled Test SKILLED NU RSE FOR O/A AND SKILLED TEACHING RELATED TO SIGNS AND SYMPTOMS AND MANAGEMENT OF ANEMIA. [code = SKILLED NURSE FOR O/A AND SKILLED TEACHING RELATED TO SIGNS AND SYMPTOMS AND MANAGEMENT OF ANEMIA.] Future Scheduled Test SKILLED NU RSE TO INSTRUCT PATIENT/CAREGIVER ON PREVENTION OF SEPSIS, AND SIGNS AND SYMPTOMS OF SEPSIS TO REPORT. [code = SKILLED NURSE TO INSTRUCT PATIENT/CAREGIVER ON PREVENTION OF SEPSIS, AND SIGNS AND SYMPTOMS OF SEPSIS TO REPORT.] Future Scheduled Test PATIENT NEW S A RISK OF HOSPITALIZATION AND ED USE. SKILLED NURSE TO ESTABLISH SUPPORT MEASURES TO MINIMIZE RISK OF HOSPITALIZATION AND ED USE, AND INSTRUCT PATIENT/CAREGIVER ON METHODS TO REDUCE AVOIDABLE HOSPITALIZATION AND ED USE. [code = PATIENT HAS A RISK OF HOSPITALIZATION AND ED USE. SKILLED NURSE TO ESTABLISH SUPPORT MEASURES TO MINIMIZE RISK OF HOSPITALIZATION AND ED USE, AND INSTRUCT PATIENT/CAREGIVER ON METHODS TO REDUCE AVOIDABLE HOSPITALIZATION AND ED USE.] Future Scheduled Test SKILLED NU RSE TO PROVIDE INSTRUCTION TO PATIENT/CAREGIVER RELATED TO DISCHARGE PLANNING. [code = SKILLED NURSE TO PROVIDE INSTRUCTION TO PATIENT/CAREGIVER RELATED TO DISCHARGE PLANNING.] Future Scheduled Test SKILLED NU RSE TO PERFORM HOME SAFETY AND FALL ASSESSMENT AND PROVIDE INSTRUCTION TO IMPLEMENT HOME SAFETY AND FALL PREVENTION STRATEGIES. [code = SKILLED NURSE TO PERFORM HOME SAFETY AND FALL ASSESSMENT AND PROVIDE INSTRUCTION TO IMPLEMENT HOME SAFETY AND FALL PREVENTION STRATEGIES.] Future Scheduled Test SKILLED NU RSE FOR OBSERVATION AND ASSESSMENT OF PATIENTS PAIN LEVEL AND EFFECTIVENESS OF PAIN MANAGEMENT REGIMEN. SKILLED NURSE TO INSTRUCT PATIENT/CAREGIVER REGARDING PHARMACOLOGIC AND NON-PHARMACOLOGIC PAIN CONTROL MEASURES. SKILLED NURSE TO REPORT TO PHYSICIAN IF PAIN IS UNCONTROLLED WITH CURRENT PAIN MANAGEMENT REGIMEN. [code = SKILLED NURSE FOR OBSERVATION AND ASSESSMENT OF PATIENTS PAIN LEVEL AND EFFECTIVENESS OF PAIN MANAGEMENT REGIMEN. SKILLED NURSE TO INSTRUCT PATIENT/CAREGIVER REGARDING PHARMACOLOGIC AND NON-PHARMACOLOGIC PAIN CONTROL MEASURES. SKILLED NURSE TO REPORT TO PHYSICIAN IF PAIN IS UNCONTROLLED WITH CURRENT PAIN MANAGEMENT REGIMEN.] Future Scheduled Test SKILLED NU RSE TO ASSESS PATIENT'S SKIN INTEGRITY AND INSTRUCT PATIENT/CAREGIVER ON MEASURES TO PREVENT PRESSURE ULCERS. [code = SKILLED NURSE TO ASSESS PATIENT'S SKIN INTEGRITY AND INSTRUCT PATIENT/CAREGIVER ON MEASURES TO PREVENT PRESSURE ULCERS.] Goal 2023-11-28 Patient Goal - GET BETTER AN D FEEL BETTER Goal 2023-12-12 Patient Goal - GET BETTER AN D FEEL BETTER Goal Provider Goal - A PLAN OF CARE WILL BE ESTABLISHED THAT MEETS PATIENT'S [facility] NEEDS AND INCLUDES PATIENT GOAL FOR HOME HEALTH. Goal Provider Goal - PATIENT/CAREGIVER WILL VERBALIZE UNDERSTANDING OF EDUCATION PROVIDED ON MEDICATIONS BY THE END OF THE CERTIFICATION PERIOD. Goal Provider Goal - SYMPTOMS OF ANXIETY ARE IDENTIFIED AND INTERVENTIONS INITIATED TO ENABLE PATIENT TO UNDERSTAND AND MANAGE FEELINGS THROUGHOUT EPISODE. Goal Provider Goal - PATIENT/CAREGIVER WILL DEMONSTRATE ABILITY TO SELF MANAGE NEEDS RELATED TO NUTRITION/HYDRATION THROUGHOUT THE EPISODE. Goal Provider Goal - EXACERBATIONS OF GASTROINTESTINAL DISEASE WILL BE PROMPTLY IDENTIFIED AND INTERVENTIONS IMPLEMENTED TO MINIMIZE RISKS TO PATIENT BY END OF EPISODE. Goal Provider Goal - PATIENT/CAREGIVER WILL VERBALIZE UNDERSTANDING OF GENITOURINARY DISEASE PROCESS, AND EXACERBATIONS OF GENITOURINARY DISEASE WILL BE PROMPTLY IDENTIFIED FOR EARLY INTERVENTION THROUGHOUT THE CERTIFICATION PERIOD. Goal Provider Goal - PATIENT/CAREGIVER WILL VERBALIZE/DEMONSTRATE MANAGEMENT OF RESPIRATORY DISEASE PROCESS. CHANGES IN RESPIRATORY STATUS WILL BE IDENTIFIED AND REPORTED TO PHYSICIAN FOR PROMPT INTERVENTION THROUGHOUT THE CERTIFICATION PERIOD. Goal Provider Goal - PATIENT/CAREGIVER WILL VERBALIZE/DEMONSTRATE UNDERSTANDING OF S/S OF INFECTION AND INFECTION CONTROL MEASURES. SIGNS AND SYMPTOMS OF INFECTION WILL BE IDENTIFIED AND PHYSICIAN NOTIFIED FOR PROMPT INTERVENTION THROUGHOUT THE CERTIFICATION PERIOD. Goal Provider Goal - CHANGES IN PSYCHOSOCIAL STATUS WILL BE IDENTIFIED AND PLAN IMPLEMENTED TO MINIMIZE PATIENT RISKS THROUGHOUT THE CERTIFICATION PERIOD. Goal Provider Goal - PATIENT/CAREGIVER WILL VERBALIZE UNDERSTANDING OF SIGNS AND SYMPTOMS, COMPLICATIONS, AND MANAGEMENT OF ATRIAL FIBRILLATION THROUGHOUT THE CERTIFICATION PERIOD. Goal Provider Goal - PATIENT/CARGIVER WILL VERBALIZE UNDERSTANDING OF ANEMIA INCLUDING SIGNS AND SYMPTOMS, MANAGEMENT OF COMPLICATIONS, AND PRESCRIBED TREATMENT REGIMEN BY END OF EPISODE. Goal Provider Goal - PATIENT WILL BE FREE FROM INFECTION AND PATIENT/CAREGIVER WILL VERBALIZE UNDERSTANDING OF SIGNS AND SYMPTOMS AND METHODS TO PREVENT SEPSIS BY END OF THE EPISODE. Goal Provider Goal - PATIENT WILL HAVE SUPPORT MEASURES ESTABLISHED TO PREVENT HOSPITALIZATION AND ED USE AND PATIENT/CAREGIVER WILL VERBALIZE/DEMONSTRATE METHODS TO REDUCE AVOIDABLE HOSPITALIZATION AND ED USE BY END OF EPISODE. Goal Provider Goal - PATIENT/CAREGIVER WILL VERBALIZE UNDERSTANDING OF DISCHARGE PLANNING INSTRUCTIONS BY DATE OF DISCHARGE. Goal Provider Goal - PATIENT/CAREGIVER WILL VERBALIZE/DEMONSTRATE EFFECTIVE HOME SAFETY AND FALL PREVENTION STRATEGIES THROUGHOUT CERTIFICATION PERIOD. Goal Provider Goal - PATIENT/CAREGIVER WILL DEMONSTRATE UNDERSTANDING OF PHARMACOLOGIC AND NONPHARMACOLOGIC PAIN CONTROL MEASURES AND PATIENT WILL HAVE IMPROVEMENT IN PAIN INTERFERING WITH ACTIVITY EVIDENCED BY PAIN CONTROLLED AT LEVEL OF 7 OR LESS BY END OF CERTIFICATION PERIOD. Goal Provider Goal - PATIENT/CAREGIVER WILL VERBALIZE UNDERSTANDING OF PRESSURE ULCER PREVENTION BY END OF THE EPISODE. Reason for Visit INDEPENDENT WITH USE OF ASSISTIVE DEVICE Encounters Start Date/Time End Date/Time Encounter Type Admission Type Attending [facility] Care Facility Care Department Encounter ID Discharge Date Discharge Status Discharge Condition Discharge Reason Percent Goals Met 2023-10-04 00:00:00 2023-12-12 00:00:00 Outpatient RECERTIFIC ESTELLE TALIA SON [facility] [id number] 2023-12-12 00:00:00 DISCHARGE TO HOME OR SELF CARE INDEPENDEN T WITH USE OF ASSISTIVE DEVICE CHANGE IN PAYOR SOURCE, WILL NOT BE READMITTED 4.00
--- OUTSIDE RECORDS SUMMARY | 2024-01-29 13:39 | XMS_ITS | Clinical Summary ---
Author Organization Unknown Care Team Providers Care Pug Machine Operator Name Role Phone TOMI BRASWELL, DELMI Unavailable Regina SON RN, TALIA Unavailable Unavailable RANJANA ([facility]) [facility] - PT, EZRA Unavailable U navailable Payers Payer Name Policy Type Policy Number Effective Date Expira tion Date [employer] MEDICARE ADVANTAGE FFS - ORDER DRIVEN [id number] MEDICARE - NGS [place] - PDGM [id number] Problems Condition Name Condition Details Condition Category [...] OF NICOTINE DEPENDENCE Active 02-06 00:00: 00 DETENTION (CURRENT) USE OF ANTICOAGULAN TS Active 02-06 00:00: 00 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 Med Classific ation: Ophthalmi c Agents DOK 100 mg capsule 2018-02 00:00: 00 12-20 23:59 :00 No [id number] 1 capsule NEEDED 1 capsule NEEDED (route: oral) Med Classific ation: Gastroint estinal Therapy Agents finasteride 5 mg tablet 9-19 00:00: 00 12-20 23:59 :00 No [id number] 1 tablet ONCE DAILY 1 tablet ONCE DAILY (route: oral) Alternate Route: BY MOUTH. Med Classific ation: Genitouri nary Therapy loratadine 10 mg capsule 2018-02 00:00: 00 12-20 23:59 :00 No [id number] 1 capsule DAILY 1 capsule DAILY (route: oral) Med Classific ation: Respirato ry Therapy Agents methylpredn isolone 4 mg tablet 02-13 00:00: 00 12-20 23:59 :00 No [id number] 1 mg DAILY 1 mg DAILY (route: oral) Med Classific ation: Endocrine oxycodone 20 mg tablet 02-13 00:00: 00 12-20 23:59 :00 No [id number] 1 tablet NEEDED 1 tablet NEEDED (route: oral) Med Classific ation: Analgesic , Anti-infl ammatory or Antipyret ic pantoprazol e 40 mg tablet,joy yed release 2018-02 00:00: 00 12-20 23:59 :00 No [id number] 1 tablet DAILY 1 tablet DAILY (route: oral) Med Classific ation: Gastroint estinal Therapy Agents pravastatin 40 mg tablet 2018-02 00:00: 00 12-20 23:59 :00 No [id number] 1 tablet BEDTIME 1 tablet BEDTIME (route: oral) Med Classific ation: Cardiovas cular Therapy Agents prednisone 10 mg tablet 2018-02 00:00: 00 12-20 23:59 :00 No [id number] 1 tablet DAILY 1 tablet DAILY (route: oral) Med Classific ation: Endocrine Pulmicort 0.25 mg/2 mL suspension for nebulizatio n 02-13 00:00: 00 12-20 23:59 :00 No [id number] Per instruc tions 2 TIMES DAILY Per instructio ns 2 TIMES DAILY (route: inhalation ) Med Classific ation: Respirato ry Therapy Agents quetiapine 100 mg tablet 02-13 00:00: 00 12-20 23:59 :00 No [id number] 1 tablet BEDTIME 1 tablet BEDTIME (route: oral) Med Classific ation: Central Nervous System Agents sulfasalazi ne 500 mg tablet 1-08 00:00: 00 12-20 23:59 :00 No [id number] 1 tablet 2 TIMES DAILY 1 tablet 2 TIMES DAILY (route: oral) Med Classific ation: Gastroint estinal Therapy Agents Symbicort 160 mcg-4.5 mcg/actuati on HFA aerosol inhaler 17 00:00: 00 12-20 23:59 :00 No [id number] 1 puff 2 TIMES DAILY 1 puff 2 TIMES DAILY (route: inhalation ) Med Classific ation: Respirato ry Therapy Agents tamsulosin 0.4 mg capsule 2018-02 00:00: 00 12-20 23:59 :00 No [id number] 1 capsule DAILY 1 capsule DAILY (route: oral) Med Classific ation: Genitouri nary Therapy Isiah-24 300 mg capsule,ext ended release 2018-02 00:00: 00 12-20 23:59 :00 No [id number] 1 capsule ONCE DAILY 1 capsule ONCE DAILY (route: oral) Alternate Route: BY MOUTH. Med Classific ation: Respirato ry Therapy Agents Symbicort 160 mcg-4.5 mcg/actuati on HFA aerosol inhaler 04-20 00:00: 00 12-20 00:00 :00 No [id number] Per instruc tions Per instructio ns (route: inhalation ) Med Classific ation: Respirato ry Therapy Agents Symbicort 160 mcg-4.5 mcg/actuati on HFA aerosol inhaler 15 00:00: 00 12-20 00:00 :00 No [id number] Per instruc tions Per instructio ns (route: inhalation ) Med Classific ation: Respirato ry Therapy Agents azithromyci n 250 mg tablet 04-18 00:00: 00 11-27 23:59 :00 No [id number] Per instruc tions DAILY Per instructio ns DAILY (route: oral) Med Classific ation: Anti-Infe ctive Agents Gammagard Liquid 10 % injection solution 2023-0 3-13 00:00: 00 12-20 00:00 :00 No [id number] Per instruc tions Per instructio ns (route: injection) Med Classific ation: Biologica ls prednisone 10 mg tablet 04-13 00:00: 00 12-20 23:59 :00 No [id number] 1 tablet DAILY 1 tablet DAILY (route: oral) Med Classific ation: Endocrine docusate sodium 100 mg capsule 04-12 00:00: 00 12-20 23:59 :00 No [id number] Unavailable Per instruc tions EVERY DAY Per instructio ns EVERY DAY (route: oral) Med Classific ation: Gastroint estinal Therapy Agents tamsulosin 0.4 mg capsule 04-11 00:00: 00 12-20 23:59 :00 No [id number] Per instruc tions EVERY DAY 30 MINUTES Per instructio ns EVERY DAY 30 MINUTES (route: oral) Med Classific ation: Genitouri nary Therapy azithromyci n 250 mg tablet 03-26 00:00: 00 12-20 23:59 :00 No [id number] Per instruc tions DAILY FOR 30 DAYS Per instructio ns DAILY FOR 30 DAYS (route: oral) Med Classific ation: Anti-Infe ctive Agents prednisone 10 mg tablet 2022-02 00:00: 00 Yes [id number] Per instruc tions DAILY Per instructio ns DAILY (route: oral) Med Classific ation: Endocrine levalbutero l HFA 45 mcg/actuati on aerosol inhaler 2022-02 00:00: 00 Yes [id number] Per instruc tions EVERY 6 HOURS NEEDED Per instructio ns EVERY 6 HOURS NEEDED (route: inhalation ) Med Classific ation: Respirato ry Therapy Agents Gammagard Liquid 10 % injection solution 2022-02 00:00: 00 Yes [id number] Per instruc tions MONTHLY Per instructio ns MONTHLY (route: injection) Med Classific ation: Biologica ls docusate sodium 100 mg capsule 2022-02 0-24 00:00: 00 Yes [id number] Unavailable Per instruc tions DAILY Per instructio ns DAILY (route: oral) Med Classific ation: Gastroint estinal Therapy Agents pravastatin 40 mg tablet 2022-02 0-24 00:00: 00 Yes [id number] Per instruc tions DAILY Per instructio ns DAILY (route: oral) Med Classific ation: Cardiovas cular Therapy Agents theophyllin e ER 300 mg tablet,exte nded release,12 hr 2022-02 0- 00:00: 00 11-27 23:59 :00 No [id number] Per instruc tions DAILY Per instructio ns DAILY (route: oral) Med Classific ation: Respirato ry Therapy Agents tamsulosin 0.4 mg capsule 2022-02 0-20 00:00: 00 10-03 23:59 :00 No [id number] Per instruc tions AT BEDTIME Per instructio ns AT BEDTIME (route: oral) Med Classific ation: Genitouri nary Therapy Symbicort 160 mcg-4.5 mcg/actuati on HFA aerosol inhaler 2022-02 0-11 00:00: 00 12-20 00:00 :00 No [id number] Per instruc tions TWICE DAILY Per instructio ns TWICE DAILY (route: inhalation ) Med Classific ation: Respirato ry Therapy Agents prednisone 10 mg tablet 2022-02 2-25 00:00: 00 02-03 23:59 :00 No [id number] Per instruc tions DAILY Per instructio ns DAILY (route: oral) Med Classific ation: Endocrine pravastatin 40 mg tablet 4-16 00:00: 00 06-01 00:00 :00 No [id number] Per instruc tions DAILY Per instructio ns DAILY (route: oral) Med Classific ation: Cardiovas cular Therapy Agents levalbutero l HFA 45 mcg/actuati on aerosol inhaler 4-08 00:00: 00 06-01 00:00 :00 No [id number] Per instruc tions EVERY 6 HOURS NEEDED Per instructio ns EVERY 6 HOURS NEEDED (route: inhalation ) Med Classific ation: Respirato ry Therapy Agents finasteride 5 mg tablet 05-11 00:00: 00 11-27 23:59 :00 No [id number] Unavailable Per instruc tions DAILY Per instructio ns DAILY (route: oral) Med Classific ation: Genitouri nary Therapy terazosin 5 mg capsule 05-11 00:00: 00 06-01 00:00 :00 No [id number] Unavailable Per instruc tions AT BEDTIME Per instructio ns AT BEDTIME (route: oral) Med Classific ation: Cardiovas cular Therapy Agents theophyllin e ER 300 mg tablet,exte nded release,12 hr 05-11 00:00: 00 06-01 00:00 :00 No [id number] Per instruc tions DAILY Per instructio ns DAILY (route: oral) Med Classific ation: Respirato ry Therapy Agents Eliquis 5 mg tablet 05-09 00:00: 00 Yes [id number] Per instruc tions TWICE DAILY Per instructio ns TWICE DAILY (route: oral) Med Classific ation: Hematolog ical Agents albuterol sulfate HFA 90 mcg/actuati on aerosol inhaler 05-07 00:00: 00 Yes [id number] Per instruc tions EVERY 6 HOURS NEEDED Per instructio ns EVERY 6 HOURS NEEDED (route: inhalation ) Med Classific ation: Respirato ry Therapy Agents Gammagard Liquid 10 % injection solution 05-01 00:00: 00 06-01 00:00 :00 No [id number] Per instruc tions Per instructio ns (route: injection) Med Classific ation: Biologica ls acetaminoph en 325 mg tablet 06-01 00:00: 00 10-03 23:59 :00 No [id number] 2 tablet NEEDED 2 tablet NEEDED (route: oral) Med Classific ation: Analgesic , Anti-infl ammatory or Antipyret ic diltiazem CD 300 mg capsule,ext ended release 24 hr 06-01 00:00: 00 10-03 23:59 :00 No [id number] 1 capsule BEDTIME 1 capsule BEDTIME (route: oral) Med Classific ation: Cardiovas cular Therapy Agents divalproex ER 500 mg tablet,exte nded release 24 hr 06-01 00:00: 00 Yes [id number] 3 tablet BEDTIME 3 tablet BEDTIME (route: oral) Med Classific ation: Central Nervous System Agents doxazosin 4 mg tablet 06-01 00:00: 00 10-03 23:59 :00 No [id number] 1 tablet BEDTIME 1 tablet BEDTIME (route: oral) Med Classific ation: Cardiovas cular Therapy Agents montelukast 10 mg tablet 06-01 00:00: 00 10-03 23:59 :00 No [id number] 1 tablet BEDTIME 1 tablet BEDTIME (route: oral) Med Classific ation: Respirato ry Therapy Agents nifedipine ER 30 mg tablet,exte nded release 06-01 00:00: 00 Yes [id number] 1 tablet DAILY 1 tablet DAILY (route: oral) Med Classific ation: Cardiovas cular Therapy Agents oxycodone 20 mg tablet 06-01 00:00: 00 07-26 23:59 :00 No [id number] 1 tablet NEEDED 1 tablet NEEDED (route: oral) Med Classific ation: Analgesic , Anti-infl ammatory or Antipyret ic quetiapine 200 mg tablet 06-01 00:00: 00 Yes [id number] 1 tablet BEDTIME 1 tablet BEDTIME (route: oral) Med Classific ation: Central Nervous System Agents prednisone 10 mg tablet 05-30 00:00: 00 06-07 23:59 :00 No [id number] Per instruc tions DAILY Per instructio ns DAILY (route: oral) Med Classific ation: Endocrine OxyContin 15 mg tablet,alycia h resistant,e xtended release 07-31 00:00: 00 08-01 23:59 :00 No [id number] 1 tablet EVERY 6 HOURS 1 tablet EVERY 6 HOURS (route: oral) Med Classific ation: Analgesic , Anti-infl ammatory or Antipyret ic oxycodone 15 mg tablet 08-01 00:00: 00 10-03 23:59 :00 No [id number] 15 mg 3 TIMES DAILY 15 mg 3 TIMES DAILY (route: oral) Med Classific ation: Analgesic , Anti-infl ammatory or Antipyret ic Belbuca 75 mcg buccal film 08-01 00:00: 00 Yes [id number] 1 film 2 TIMES DAILY 1 film 2 TIMES DAILY (route: buccal) Med Classific ation: Analgesic , Anti-infl ammatory or Antipyret ic buprenorphi ne HCl 75 mcg buccal film 08-03 00:00: 00 10-03 23:59 :00 No [id number] 1 film, medicat ed EVERY 12 HOURS 1 film, medicated EVERY 12 HOURS (route: buccal) Med Classific ation: Analgesic , Anti-infl ammatory or Antipyret ic prednisone 5 mg tablets in a dose pack 08-27 00:00: 00 09-04 23:59 :00 No [id number] Per instruc tions DIRECTED Per instructio ns DIRECTED (route: oral) Med Classific ation: Endocrine amoxicillin 875 mg-potassiu m clavulanate 125 mg tablet 10-03 00:00: 00 10-09 23:59 :00 No [id number] 1 tablet 2 TIMES DAILY 1 tablet 2 TIMES DAILY (route: oral) Med Classific ation: Anti-Infe ctive Agents iron 325 mg (65 mg iron) tablet 10-03 00:00: 00 Yes [id number] 1 tablet DAILY 1 tablet DAILY (route: oral) Med Classific ation: Electroly te Balance-N utritiona l Products loratadine 10 mg tablet 10-03 00:00: 00 Yes [id number] 1 tablet DAILY 1 tablet DAILY (route: oral) Med Classific ation: Respirato ry Therapy Agents omeprazole 20 mg tablet,joy yed release 10-03 00:00: 00 Yes [id number] 1 tablet DAILY 1 tablet DAILY (route: oral) Med Classific ation: Gastroint estinal Therapy Agents oxycodone 5 mg tablet 10-03 00:00: 00 Yes [id number] 3 tablet EVERY 6 HOURS 3 tablet EVERY 6 HOURS (route: oral) Med Classific ation: Analgesic , Anti-infl ammatory or Antipyret ic Tylenol Extra Strength 500 mg tablet 10-03 00:00: 00 Yes [id number] 2 tablet EVERY 6 HOURS 2 tablet EVERY 6 HOURS (route: oral) Med Classific ation: Analgesic , Anti-infl ammatory or Antipyret ic finasteride 5 mg tablet 2023-02 00:00: 00 Yes [id number] 10 mg DAILY 10 mg DAILY (route: oral) Med Classific ation: Genitouri nary Therapy quetiapine 25 mg tablet 2023-02 00:00: 00 Yes [id number] 1 tablet DAILY 1 tablet DAILY (route: oral) Med Classific ation: Central Nervous System Agents roflumilast 500 mcg tablet 2023-02 00:00: 00 Yes [id number] 1 tablet DAILY 1 tablet DAILY (route: oral) Med Classific ation: Respirato ry Therapy Agents Singulair 10 mg tablet 2023-02 00:00: 00 Yes [id number] 1 tablet BEDTIME 1 tablet BEDTIME (route: oral) Med Classific ation: Respirato ry Therapy Agents Symbicort 160 mcg-4.5 mcg/actuati on HFA aerosol inhaler 2023-02 00:00: 00 Yes [id number] 2 puff 2 TIMES DAILY 2 puff 2 TIMES DAILY (route: inhalation ) Med Classific ation: Respirato ry Therapy Agents terazosin 5 mg capsule 2023-02 00:00: 00 Yes [id number] 1 capsule BEDTIME 1 capsule BEDTIME (route: oral) Med Classific ation: Cardiovas cular Therapy Agents theophyllin e ER 400 mg tablet,exte nded release 24 hr 2023-02 00:00: 00 Yes [id number] 1 tablet DAILY 1 tablet DAILY (route: oral) Med Classific ation: Respirato ry Therapy Agents Vitamin C 250 mg tablet 2023-02 00:00: 00 Yes [id number] 1 tablet DAILY 1 tablet DAILY (route: [...] CARE WILL BE ESTABLISHED THAT MEETS PATIENT'S LONG TERM NEEDS AND INCLUDES PATIENT GOAL FOR HOME [...] End Date/Time Encounter Type Admission Type Attending [facility] Facility Care Department Encounter ID Discharge Date Discharge Status Discharge Condition Discharge Reason Percent Goals Met 2023-10-04 00:00:00 2023-12-12 00:00:00 Outpatient RECERTIFIC ESTELLE TALIA SON [facility] [id number] 2023-12-12 00:00:00 DISCHARGE TO HOME OR SELF CARE INDEPENDEN T WITH USE OF ASSISTIVE DEVICE CHANGE IN PAYOR SOURCE, WILL NOT BE READMITTED 4.00
--- NOTE | 2024-01-29 13:40 | MHC.OFFVIS ---
Intake Visit Reasons: 6m follow up Intake Note: Patient is present for 6M F/U Urology Medication:TERAZOSIN,FINASTERIDE Antibiotic Allergy:NONE Blood Thinner:NONE TODAY'S PVR:0ML'S Supervisor Roving Required: No Allergies spariva Allergy (Unknown, Uncoded 01/29/24 21:42) Unknown Medication List - Last Reconciled 01/29/24 by HITESH PichardoP- albuterol sulfate 90 mcg/actuation inhalation azithromycin 250 mg PO DAILY budesonide-formoterol 160-4.5 mcg/actuation 2 puffs PO BID docusate sodium 100 mg PO DAILY ferrous sulfate (FeroSul) 325 mg PO DAILY finasteride 5 mg PO DAILY 90 days immun glob G(IgG)-gly-IgA ov50 10 % (Gammagard Liquid) mL IV levalbuterol tartrate 45 mcg/actuation 0 mcg inhalation montelukast 10 mg PO BEDTIME omeprazole 20 mg PO QAM pravastatin 40 mg PO DAILY prednisone 10 mg PO DAILY terazosin 5 mg PO BEDTIME 90 days theophylline ER 1 mg PO BEDTIME HPI Comments Details: Gabriele is a pleasant 68-year-old male patient of Dr. Velez. He has a past medical history of memory loss, anxiety, depression, bipolar disorder, rheumatoid arthritis, COPD, BPH with lower urinary tract symptoms, and renal cancer. He presents to the office today for follow-up of his renal cancer, lower urinary tract symptoms, and elevated PSA. In discussion with the patient today reports to be doing and feeling well. He reports compliance with finasteride 5 mg daily as prescribed however has recently ran out of refills on his terazosin and does not believe he has been taking this medication. He reports he has been experiencing bouts of urinary frequency typically in the morning. Recent PSA results reviewed with the patient today as noted and trended below... 10/29 2.2, 05/30 2.3, 01/29 1.5 Previous workup has included a renal ultrasound 05/30 noting right kidney with no hydronephrosis or renal calculi. A 1.2 cm mid pole cyst with benign features. There is no indication for follow-up imaging per radiology report. Redemonstration of cortical scarring lateral mid pole. Left kidney with no hydronephrosis or renal calculi. Lobulated renal cortex difficult to evaluate due to limited visualization. Chest x-ray 5/24 with no acute findings lungs are clear. He denies incontinence, nocturia, hematuria, dysuria, foul smelling urine, changes to urinary stream, flank pain, fever, and or chills. In office urinalysis results reviewed with the patient today. PVR 0 mL. Renal Cancer - Ablation 06/16 :? They present for? reevaluation of renal mass characterized as, right side, renal cancer. ? The renal mass was diagnosed incidentally, during evaluation for, back pain. ? Imaging included 06/16 - a CT (computed tomography) scan of the abdomen/pelvis, showing a solid mass, 2-3.0 cm in size, on the right ? - Followup imaging has showed appropriate scarring ? 04/22 , an MRI of the abdomen, ablation scar on the right ? 03/27 , a renal ultrasound, table ablation area on right ? 09/25 , a renal ultrasound, right 1.2 cm exophytic cyst consistent with ablation area - 07/29 BAMBI 44 g prostate, renal cyst ? Prior treatment(s) included 06/16 cryotherapy [facility]. ? Staging of initial cancer T1a. ? The diagnosis was renal cell carcinoma, Grade II. ? Follow up imaging includes renal Ultrasound. [facility] Medical History Memory loss History of suicidal tendencies Anxiety Depression Bipolar disorder Rheumatoid arthritis Chronic obstructive pulmonary disease (COPD) Urinary urgency Benign prostatic hyperplasia with lower urinary tract symptoms Feeling of incomplete bladder emptying Renal cancer Surgical History H/O endoscopy History of hernia repair History of appendectomy Family History Father No problems noted. Mother No problems noted. Social History Unable to assess alcohol history related to: Unable to respond Patient Tobacco Use Status: Never used Tobacco Review of Systems Const Reports as per HPI Eyes Reports no additional complaints ENT Reports no additional complaints Card Reports no additional complaints Resp Reports as per HPI GI Reports as per HPI Reports as per HPI Neuro Reports no additional complaints Psych Reports as per HPI Endo Reports no additional complaints Physical Exam Const General: cooperative, comfortable, no acute distress, well developed, alert and awake Nutritional Appearance: thin Orientation/consciousness: patient oriented x3 Limitations: other limitations (motorized scooter ) HEENT Head: Yes normal to inspection, Yes normocephalic and Yes atraumatic Ears: hearing grossly normal bilaterally Eyes General: appearance normal, both eyes and all related structures Neck Neck: Yes normal visual inspection and Yes trachea midline Chest Chest palpation & inspection: normal inspection of the chest Resp Effort & Inspection: normal respiratory effort and able to speak in complete sentences Cardio Rate: regular rate GI Inspection: Yes normal to inspection General: Yes no CVA tenderness Back/Spine/Pelvis Back: no CVA tenderness Skin General skin exam: no rashes or lesions noted Neuro General: patient oriented x3 Extrem General: Yes normal to inspection Psych Appearance: grossly normal and well kempt Mental Status: mental status grossly normal Speech and movement: Normal speech and movement present and Clear speech present Affect: normal affect Attitude: cooperative Thought process: Normal thought process present Thought content: Normal thought content present Insight: Fair insight present (Psych) Judgement: Fair judgement present (Psych) Office Procedures Post Void Residual Post Residual Void Post Void Residual (PVR): 0 82978-Bgip Void Residual by ultrasound Results AMB Urinalysis, Automated UA Leukoctes 0 Dodie/uL Last Edit by TERE Lobato on 01/29/24 13:54 UA Nitrite Negative Last Edit by TERE Lobato on 01/29/24 13:54 UA Urobilinogen 0.2 mg/dL Last Edit by TERE Lobato on 01/29/24 13:54 UA Protein 0 mg/dL Last Edit by TERE Lobato on 01/29/24 13:54 UA pH 6.0 Last Edit by TERE Lobato on 01/29/24 13:54 UA Blood 0 Lobito/uL Last Edit by TERE Lobato on 01/29/24 13:54 UA Specific [place] 1.015 Last Edit by TERE Lobato on 01/29/24 13:54 UA Ketone Negative Last Edit by TERE Lobato on 01/29/24 13:54 UA Bilirubin 0 mg/dL Last Edit by TERE Lobato on 01/29/24 13:54 UA Glucose 0 mg/dL Last Edit by TERE Lobato on 01/29/24 13:54 Results Reviewed Results Reviewed: Laboratory Last Values Urine pH (Auto) 6.0 01/29/24 13:53 Specific [place] (Auto) 1.015 01/29/24 13:53 Urine Protein (Auto) 0 mg/dL 01/29/24 13:53 Glucose (UA)(Auto) 0 mg/dL 01/29/24 13:53 Urine Ketones (Auto) Negative 01/29/24 13:53 Urine Blood (Auto) 0 Lobito/uL 01/29/24 13:53 Urine Nitrite (Auto) Negative 01/29/24 13:53 Urine Bilirubin (Auto) 0 mg/dL 01/29/24 13:53 Urine Urobilinogen (Auto) 0.2 mg/dL 01/29/24 13:53 Leukocyte Esterase (Auto) 0 Dodie/uL 01/29/24 13:53 Assessment & Plan Assessment & Plan (1) Elevated PSA: Code(s): R97.20 - Elevated prostate specific antigen [PSA] Category: Medical (2) Lower urinary tract symptoms: Code(s): R39.9 - Unspecified symptoms and signs involving the genitourinary system Category: Medical (3) BPH w urinary obs/LUTS: Code(s): N40.1 - Benign prostatic hyperplasia with lower urinary tract symptoms; N13.8 - Other obstructive and reflux uropathy Category: Medical (4) Renal cancer: Code(s): C64.9 - Malignant neoplasm of unspecified kidney, except renal pelvis Category: Medical Qualifiers: Laterality: right Qualified Code(s): C64.1 - Malignant neoplasm of right kidney, except renal pelvis Plan In office urinalysis results reviewed with the patient today; as noted above. PVR 0 mL. Continue terazosin finasteride as prescribed; refills provided; will reassess lower urinary tract symptoms with re-initiation of terazosin Discussed bladder triggers/irritants. Recent PSA results reviewed with the patient today; as noted above. Discussed surveillance monitoring of renal cancer and elevated PSA. Will obtain renal ultrasound Follow-up in 3 months with imaging and PVR; or sooner with any issues, concerns, and or questions Orders: Orders AMB Urinalysis Automated Today Z13.9 - Encounter for screening, unspecified Medications: Refilled finasteride 5 mg PO DAILY 90 days 90 tabs 3RF N13.8 - Other obstructive and reflux uropathy, N40.1 - Benign prostatic hyperplasia with lower urinary tract symptoms, R33.9 - Retention of urine, unspecified terazosin 5 mg PO BEDTIME 90 days 90 caps 2RF N40.1 - Benign prostatic hyperplasia with lower urinary tract symptoms, R35.0 - Frequency of micturition Patient Instructions: The patient had an opportunity to ask questions regarding the treatment plan. All questions were answered. Physical exam, labs, and imaging were discussed and reviewed in detail. As well as risks, benefits, and discussion of treatment choices. No major barriers to understanding were identified. The patient expressed understanding and agreement with the above treatment plan. The patient was made aware they should contact our office by phone for worsening of their current condition, the appearance of new symptoms, or with any questions or concerns. Compliance is encouraged with any medications and follow up testing that is ordered. It is a privilege to be allowed the opportunity to participate in? your urological care.? Again, if you have any questions or concerns If you have any questions or concerns please do not hesitate to contact me. The office is [phone]. This note is constructed using voice recognition software. While every effort has been made to ensure accuracy gas cutter errors may have been included. Yours sincerely, MARKY Pichardo Coding Level of Care Code Est Pt Level 3 (16901) Complex EM visit Add On G2211 Diagnoses Elevated PSA R97.20 Lower urinary tract symptoms R39.9 BPH w urinary obs/LUTS N40.1; N13.8 Malignant neoplasm of right kidney C64.1 Laterality: right CPT Codes Post Residual Void - PVR CPT Code: 69837-[id number] Void Residual by ultrasound ([id number])
== END 2024-01-29 14:22 | disposition home or self-care (01) ==
LOC: HO.HUSH 13:35
PROVIDERS: PCP Internal Medicine; Visit Provider Nurse Practitioner Family
DX: R97.20 Elevated prostate specific antigen [PSA] (principal); R39.9 Unspecified symptoms and signs involving the genitourinary system; N40.1 Benign prostatic hyperplasia with lower urinary tract symptoms; N13.8 Other obstructive and reflux uropathy; C64.1 Malignant neoplasm of right kidney, except renal pelvis; Z13.9 Encounter for screening, unspecified
CPT/HCPCS: 99213; G2211

== ENCOUNTER → 2024-01-29 13:35 | Outpatient (BNVA) | payer MEDICARE, SELFPAY | PROVIDERS: PCP Internal Medicine; Visit Provider Nurse Practitioner Family | DX: N40.1 Benign prostatic hyperplasia with lower urinary tract symptoms (principal); N13.8 Other obstructive and reflux uropathy; R39.9 Unspecified symptoms and signs involving the genitourinary system; R97.20 Elevated prostate specific antigen [PSA]; C64.1 Malignant neoplasm of right kidney, except renal pelvis | CPT/HCPCS: 51798; 81003; 99212 ==